=== PATIENT | female | born 1965 | race Caucasian/White ===

== ENCOUNTER 2017-02-03 18:37 | Emergency (ER) | payer SELFPAY ==
[~2017-02-03] VITALS: Ht 172.7 cm; Wt 95.0 kg
[~2017-02-03 18:37] MED LIST: AUGM875T PO; DICL75 PO; HYDR-3533 PO; LOSA25TA31 PO; PRAV40TA2 PO; ZOLO100T OR
[2017-02-03 18:39] VITALS: BP 157/98; PULSE 74; RESP 20; TEMP 98.6; O2SAT 95
[2017-02-03] MEDS ORDERED: DICL75TA PO (20:11)
[2017-02-03] MEDS ORDERED: HYDR-3533 PO (20:11)
[2017-02-03] MEDS ORDERED: ACETAMINOPHEN/HYDROcodone 325 MG/5 MG TAB PO ONE (20:15)
--- NOTE | 2017-02-03 20:26 | PD ---
HPI Chief Complaint: Injury Time Seen by Provider: 19:57 Travel History International Travel<30 days: No Contact w/Intl Traveler<30days: No Traveled to known affect area: No History of Present Illness HPI 51-year-old white female presents to emergency department accompanied by her significant other for evaluation of left leg bruising and swelling. She states that on Friday she felt that she had a cramp and some tightness in her left thigh. She states that she performed stretching exercises and hopes to alleviate the cramping. She also states that she's been taking 2 aspirin twice a day along with Tylenol because of chronic back pain. She woke up Friday morning with a area swelling and bruising to the medial posterior aspect of her proximal left thigh. Over the last day it has gone down her back of her leg and down the inner aspect of her thigh. She states the pain is severe. Worse with sitting for long periods of time or standing. She denies any numbness or tingling. She denies any direct trauma other than stretching. She denies any other lung thinners. She denies any bleeding tendencies. No recent illness. FOR[facility], [facility] Past Medical History Narrative Medical Chronic back pain, Depression, CVA, hypercholesterolemia Autoimmune Disease: No Depression: Yes (zoloft) Heart Rhythm Problems: No Cancer: No High Cholesterol: Yes Chemotherapy: No Congestive Heart Failure: No Cerebrovascular Accident: Yes (TIA) Diminished Hearing: No Endocrine: No Genitourinary: No Hypertension: Yes Immune Disorder: No Musculoskeletal: Yes Neurologic: Yes Psychiatric: Yes Reproductive: No Respiratory: No Radiation Therapy: No Tetanus Vaccination: Unknown ?: Not LMP: 01/04/2017 Tubal Ligation: Yes Past Surgical History Abdominal Surgery: No Cardiac Surgery: No Genitourinary Surgery: No Gynecologic Surgery: No Thoracic Surgery: No Other Surgery: Yes (SKIN GRAFT) Social History Alcohol Use: Yes (SOCIAL) Tobacco Use: No Substance Use: No Allergies-Medications (Allergen,Severity, Reaction): Coded Allergies: No Known Allergies (Verified , 02/03/17) Reported Meds & Prescriptions Reported Meds & Active Scripts Active Lortab (Hydrocodone-Acetaminophen) 5-325 Mg Tab 1 Tab PO Q8HR PRN Diclofenac Sodium DR (Diclofenac Sodium) 75 Mg Tabdr 75 Mg PO BID Review of Systems General / Constitutional: No: Fever Eyes: No: Visual changes HENT: No: Headaches Cardiovascular: No: Chest Pain or Discomfort Respiratory: No: Shortness of Breath Gastrointestinal: No: Abdominal Pain Genitourinary: No: Dysuria Musculoskeletal: Positive: Myalgias, Cramping, Edema, Pain, No: Arthralgias, Limited ROM Skin: Positive Rash Neurologic: No: Weakness Psychiatric: No: Depression Endocrine: No: Polydipsia Hematologic/Lymphatic: No: Easy Bruising Physical Exam Narrative GENERAL: This is a well-nourished, well-developed patient, in no apparent distress. SKIN: No rashes, ecchymoses or lesions. Warm and dry. HEAD: Atraumatic. Normocephalic. EYES: PERRL, EOMI, no discharge or injection. No scleral icterus. EARS: Clear NOSE: Nasal turbinates appear normal. THROAT: Mucosa pink and moist. Airway patent. NECK: Trachea midline. supple, moves head freely. LUNGS: Clear to auscultation. CV: Regular in rhythm. ABDOMEN: Soft nontender. EXT: No clubbing cyanosis. Examination left lower extremity reveals an area of ecchymosis that starts at the edge of the buttocks along the posterior left thigh and medial thigh to the knee. Patient has intact sensation with good distal pulses. Good capillary refill. The area is tender to touch. There is no bony tenderness in the hip, knee, ankle or foot. Data Data Last Documented VS Vital Signs Date Time Temp Pulse Resp B/P (MAP) Pulse Ox O2 Delivery O2 Flow Rate FiO2 02/03/17 18:39 98.6 74 20 157/98 (117) 95 Orders Orders Acetamin-Hydrocod 325-5 Mg ([place] 5-325 (02/03/17 20:15) [facility] Medical Decision Making Medical Screen Exam Complete: Yes Emergency Medical Condition: Yes Medical Record Reviewed: Yes Differential Diagnosis Differential diagnoses: Sprain, strain, hematoma Narrative Course The patient has a hematoma which is draining down the left leg most likely from a muscle tear. I see no acute compartment syndrome. The patient is complaining of localized pain to palpation. She'll be given Lortab 5 a grams by mouth here and a prescription for diclofenac and Lortab. She is advised to follow-up with a medical doctor in the next 5 days. Diagnosis Primary Impression: Hematoma of left lower extremity Qualified Codes: S80.12XA - Contusion of left lower leg, initial encounter Patient Instructions: General Instructions, Narcotic given in the ED Departure Forms: Tests/Procedures, Work Release Special Instructions: No work 5 days. Additional Instructions: Rest. Elevation. Heating pad. Medications as directed. Stop Aspirin for the next 2 weeks. Follow-up with a medical doctor in the next 5 days. Return to the ER for emergencies. Med/Other Pt SpecificInfo: Prescription(s) given Scripts Hydrocodone-Acetaminophen (Lortab) 5-325 Mg Tab 1 TAB PO Q8HR Y for PAIN GREATER THAN 5, #15 TAB 0 Refills Prov: Odilia Veloz DO 02/03/[address] (Diclofenac Sodium DR) 75 Mg Tabdr 75 MG PO BID, #30 TAB 0 Refills Prov: Odilia Veloz DO 02/03/17 Disposition: 01 DISCHARGE HOME Condition: Stable Alfredo Dent Feb 03, 2017 20:26
== END 2017-02-03 20:50 | disposition home or self-care (01) ==
LOC: NEPK 18:37
DX: S80.12XA Contusion of left lower leg, initial encounter (principal); G89.29 Other chronic pain; M54.9 Dorsalgia, unspecified; I10 Essential (primary) hypertension; X50.1XXA Overexertion from prolonged static or awkward postures, initial encounter; Y93.89 Activity, other specified
CPT/HCPCS: 99284

== ENCOUNTER 2017-06-16 17:15 | Emergency (ER) | payer SELFPAY ==
[~2017-06-16 17:15] MED LIST changes: -AUGM875T PO; -DICL75 PO; +DICL75TA PO; -LOSA25TA31 PO; -PRAV40TA2 PO; -ZOLO100T OR
[2017-06-17] MEDS ORDERED: IRBE75TA24 PO (13:18)
== END 2017-06-16 17:50 | disposition left against medical advice (07) ==
LOC: NED 17:15
DX: Z53.21 Procedure and treatment not carried out due to patient leaving prior to being seen by health care provider (principal)
CPT/HCPCS: 99281

== ENCOUNTER 2017-06-17 08:51 | Emergency (ER) | payer SELFPAY ==
[~2017-06-17] VITALS: Ht 172.7 cm; Wt 96.0 kg
[2017-06-17 08:54] VITALS: BP 216/117; PULSE 72; RESP 17; TEMP 97.9; O2SAT 98
--- NOTE | 2017-06-17 10:29 | PD ---
HPI Chief Complaint: Numbness/Tingling Time Seen by Provider: 10:13 Travel History International Travel<30 days: No Contact w/Intl Traveler<30days: No Traveled to known affect area: No History of Present Illness HPI 51-year-old female states she's having tingling to both of her hands. She states she's been having this for the past 4 days. She states that she had a stroke a couple years ago and at that time she had speech changes. She states all those symptoms resolved. She states now she takes a full dose aspirin in the morning and the evening for that. She states that she's been off of her blood pressure and cholesterol medications for multiple years. She denies any chest pain, weakness, any other concurrent complaints at this time other than sometimes she gets pain to her hands with the numbness. She denies specific modifying factors at this time. Quality is tingly. Location is bilateral hands. PFSH Past Medical History Autoimmune Disease: No Depression: Yes (zoloft) Heart Rhythm Problems: No Cancer: No High Cholesterol: Yes Chemotherapy: No Congestive Heart Failure: No Cerebrovascular Accident: Yes (TIA) Diminished Hearing: No Endocrine: No Genitourinary: No Hypertension: Yes Immune Disorder: No Musculoskeletal: Yes Neurologic: Yes Psychiatric: Yes Reproductive: No Respiratory: No Radiation Therapy: No ?: Not LMP: 06/2017 Tubal Ligation: Yes Past Surgical History Abdominal Surgery: No Cardiac Surgery: No Genitourinary Surgery: No Gynecologic Surgery: No Thoracic Surgery: No Other Surgery: Yes (SKIN GRAFT) Social History Alcohol Use: Yes (SOCIAL) Tobacco Use: No Substance Use: No Allergies-Medications (Allergen,Severity, Reaction): Coded Allergies: No Known Allergies (Verified Adverse Reaction, Unknown, 06/17/17) Reported Meds & Prescriptions Reported Meds & Active Scripts Active Lortab (Hydrocodone-Acetaminophen) 5-325 Mg Tab 1 Tab PO Q8HR PRN Diclofenac Sodium DR (Diclofenac Sodium) 75 Mg Tabdr 75 Mg PO BID Review of Systems Except as stated in HPI: all other systems reviewed are Neg Physical Exam Narrative General: 51 y/o patient in no apparent distress Skin: Warm and dry Eyes: Pupils equal ENT: Mucous membranes moist NECK: no pain with palpation in midline, no step-off Cardiovascular: Regular rate and rhythm Respiratory: Normal respiratory effort noted, clear to auscultation bilaterally Abdomen: soft, nontender, nondistended Back: No step-offs, midline spine nontender with palpation Extremities: No specific joint pain, no lacerations over, neurovascularly intact , no significant edema Neuro: awake, alert, sensation and motor grossly intact, no facial droop, no pronator drift Data Data Last Documented VS Vital Signs Date Time Temp Pulse Resp B/P (MAP) Pulse Ox O2 Delivery O2 Flow Rate FiO2 06/17/17 12:19 60 15 199/100 (133) 98 Room Air 06/17/17 08:54 97.9 Orders Orders Magnesium (Mg) (06/17/17 10:20) Phosphorus (Po4) (06/17/17 10:20) Complete Blood Count With Diff (06/17/17 10:20) Comprehensive Metabolic Panel (06/17/17 10:20) Ckmb (Isoenzyme) Profile (06/17/17 10:20) Troponin I (06/17/17 10:20) Urinalysis - C+S If Indicated (06/17/17 10:20) Act Partial Throm Time (Ptt) (06/17/17 10:20) Prothrombin Time / Inr (Pt) (06/17/17 10:20) Ct Brain W/O Iv Contrast(Rout) (06/17/17 ) Chest, Single Ap (06/17/17 ) Electrocardiogram (06/17/17 ) Iv Access Insert/Monitor (06/17/17 10:20) Ecg Monitoring (06/17/17 10:20) Oximetry (06/17/17 10:20) Enalaprilat Inj (Vasotec Inj) (06/17/17 10:30) CKMB (06/17/17 11:15) CKMB% (06/17/17 11:15) Ed Discharge Order (06/17/17 13:16) Labs Laboratory Tests Test 06/17/17 11:15 White Blood Count 7.8 TH/MM3 Red Blood Count 4.29 MIL/MM3 Hemoglobin 11.8 GM/DL Hematocrit 35.8 % Mean Corpuscular Volume 83.5 FL Mean Corpuscular Hemoglobin 27.5 PG Mean Corpuscular Hemoglobin Concent 33.0 % Red Cell Distribution Width 15.2 % Platelet Count 289 TH/MM3 Mean Platelet Volume 9.2 FL Neutrophils (%) (Auto) 66.6 % Lymphocytes (%) (Auto) 25.9 % Monocytes (%) (Auto) 5.0 % Eosinophils (%) (Auto) 1.3 % Basophils (%) (Auto) 1.2 % Neutrophils # (Auto) 5.2 TH/MM3 Lymphocytes # (Auto) 2.0 TH/MM3 Monocytes # (Auto) 0.4 TH/MM3 Eosinophils # (Auto) 0.1 TH/MM3 Basophils # (Auto) 0.1 TH/MM3 CBC Comment AUTO DIFF Differential Comment AUTO DIFF CONFIRMED Platelet Estimate NORMAL Platelet Morphology Comment NORMAL Red Cell Morphology Comment NORMAL Prothrombin Time 10.0 SEC Prothromb Time International Ratio 1.0 RATIO Activated Partial Thromboplast Time 19.0 SEC Blood Urea Nitrogen 12 MG/DL Creatinine 0.89 MG/DL Random Glucose 115 MG/DL Total Protein 7.6 GM/DL Albumin 3.4 GM/DL Calcium Level 9.1 MG/DL Phosphorus Level 3.2 MG/DL Magnesium Level 1.9 MG/DL Alkaline Phosphatase 76 U/L Aspartate Amino Transf (AST/SGOT) 19 U/L Alanine Aminotransferase (ALT/SGPT) 24 U/L Total Bilirubin 0.3 MG/DL Sodium Level 137 MEQ/L Potassium Level 3.8 MEQ/L Chloride Level 102 MEQ/L Carbon Dioxide Level 28.3 MEQ/L Anion Gap 7 MEQ/L Estimat Glomerular Filtration Rate 67 ML/MIN Total Creatine Kinase 112 U/L Creatine Kinase MB 1.4 NG/ML Troponin I LESS THAN 0.02 NG/ML MDM Medical Decision Making Medical Screen Exam Complete: Yes Emergency Medical Condition: Yes Medical Record Reviewed: Yes (past history confirmed) Interpretation(s) CBC & BMP Diagram 06/17/17 11:15 Total Protein 7.6, Albumin 3.4, Calcium Level 9.1, Phosphorus Level 3.2, Magnesium Level 1.9, Alkaline Phosphatase 76, Aspartate Amino Transf (AST/SGOT) 19, Alanine Aminotransferase (ALT/SGPT) 24, Total Bilirubin 0.3 Last [address] 06/17/17 0000 Signed Impressions: Service Date/Time: Saturday, June 17, 2017 10:55 - CONCLUSION: 1. No acute intracranial abnormality. 2. Bilateral probably old basal ganglia lacunar infarcts. 3. Changes consistent with periventricular and deep white matter small vessel ischemic demyelination. Gus Mcnair MD Chest X-Ray 06/17/17 0000 Signed Impressions: Service Date/Time: Saturday, June 17, 2017 10:33 - CONCLUSION: Normal examination. Antony Elliott Jr., MD Differential Diagnosis Electrolyte abnormality, disc disease, arthritis, hypertensive urgency Narrative Course Will check blood work, chest x-ray, CT brain and dose with Vasotec and reevaluate. Patient's symptomatology sounds more peripheral neuropathy versus cervical disc disease. Patient has no pain over the midline or fever. Patient agrees to limited workup with blood work, chest x-ray, CT brain and reevaluation. ED workup no emergent process. Patient's blood pressure has improved. Patient states she took Avapro in the past without difficulty so I will place her back on this. She currently symptomatically only has bilateral hand numbness. She agrees to follow-up outpatient and understands the importance of taking her blood pressure medication. Patient denies any new complaints and states that they are feeling better. Patient happy with care, all questions answered. Patient knows that follow up is incumbent on them and to return to the emergency room immediately if new or worsening symptoms develop. Patient given strict return precautions, vitals reviewed and are normal Diagnosis Primary Impression: Bilateral hand numbness Additional Impression: Hypertensive urgency Patient Instructions: General Instructions Additional Instructions: return as needed, keep blood pressure log, follow with primary tommorrow Med/Other Pt SpecificInfo: Prescription(s) given Scripts Irbesartan (Avapro) 75 Mg Tab 75 MG PO DAILY for Blood Pressure Management for 14 Days, #14 TAB 0 Refills Prov: Mary Robertson MD 06/17/17 Disposition: 01 DISCHARGE HOME Condition: Stable Mary Robertson MD Jun 17, 2017 10:29
[2017-06-17] MEDS ORDERED: ENALAPRILAT 1.25 MG/ML VIAL IV PUSH ONE (10:30)
--- NOTE | 2017-06-17 10:41 | RADRPT ---
EXAM DATE/TIME: 06/17/2017 10:33 [facility] COMPARISON: No previous studies available for comparison. INDICATIONS : Left arm numbness radiating into fingers. MEDICAL HISTORY : Stroke. SURGICAL HISTORY : None. ENCOUNTER: Initial ACUITY: 2 days PAIN SCORE: 0/10 LOCATION: Left chest FINDINGS: A single view of the chest demonstrates the lungs to be symmetrically aerated without evidence of mas s, infiltrate or effusion. The cardiomediastinal contours are unremarkable. Osseous structures are intact. CONCLUSION: Normal examination. Antony Elliott Jr., MD on June 17, 2017 at 10:40 Board Certified Radiologist. This report was verified electronically.
--- NOTE | 2017-06-17 11:09 | RADRPT ---
EXAM DATE/TIME: 06/17/2017 10:55 [facility] COMPARISON: CT BRAIN W/O CONTRAST, January 07, 2012, 11:35. INDICATIONS : Left hand tingling and numbness x 4 days. RADIATION DOSE: 56.77 CTDIvol (mGy) MEDICAL HISTORY : Cerebrovascular disease. Hypertension. SURGICAL HISTORY : Tubal ligation. ENCOUNTER: Initial ACUITY: 4 - 6 days PAIN SCALE: 0/10 LOCATION: cranial TECHNIQUE: Multiple contiguous axial images were obtained of the head. Using automated exposure control and adj ustment of the mA and/or kV according to patient size, radiation dose was kept as low as reasonably a chievable to obtain optimal diagnostic quality images. DICOM format image data is available electro nically for review and comparison. FINDINGS: CEREBRUM: Mild diffuse cerebral volume loss. Small hypodensities in the basal ganglia bilaterally which may ref lect small lacunar infarcts. Mild periventricular and deep white matter hypodensities. The ventricles are normal for age. No evidence of midline shift, mass lesion, hemorrhage or acute infarction. No extra-axial fluid collections are seen. POSTERIOR FOSSA: The cerebellum and brainstem are intact. The 4th ventricle is midline. The cerebellopontine angle i s unremarkable. EXTRACRANIAL: The visualized portion of the orbits is intact. SKULL: The calvaria is intact. No evidence of skull fracture. CONCLUSION: 1. No acute intracranial abnormality. 2. Bilateral probably old basal ganglia lacunar infarcts. 3. Changes consistent with periventricular and deep white matter small vessel ischemic demyelination. Gus Mcnair MD on June 17, 2017 at 11:05 Board Certified Radiologist. This report was verified electronically.
[2017-06-17 11:51] LABS: AUTOMATED NEUTROPHIL # 5.2 TH/MM3 (1.8-7.7); BASOPHIL # 0.1 TH/MM3 (0-0.2); BASOPHIL % 1.2 % (0.0-2.0); EOSINOPHIL # 0.1 TH/MM3 (0-0.4); EOSINOPHIL % 1.3 % (0.0-4.0); HEMATOCRIT 35.8 % (35.0-46.0); HEMOGLOBIN 11.8 GM/DL (11.6-15.3); LYMPH % 25.9 % (9.0-44.0); MEAN CELL VOLUME 83.5 FL (80.0-100.0); MEAN CORPUSCULAR HEMOGLOBIN 27.5 PG (27.0-34.0); MEAN PLATELET VOLUME 9.2 FL (7.0-11.0); MONOCYTE # 0.4 TH/MM3 (0-0.9); NEUT % 66.6 % (16.0-70.0); PLATELET COUNT 289 TH/MM3 (150-450); RED BLOOD COUNT 4.29 MIL/MM3 (4.00-5.30); RED CELL DISTRIBUTION WIDTH 15.2 % (11.6-17.2); WHITE BLOOD COUNT 7.8 TH/MM3 (4.0-11.0)
[2017-06-17 12:00] VITALS: BP 199/100; PULSE 60; RESP 15; O2SAT 98
[2017-06-17 12:17] LABS: ALBUMIN 3.4 GM/DL (3.4-5.0); ALT (GPT) 24 U/L (10-53); AST (GOT) 19 U/L (15-37); BICARBONATE 28.3 MEQ/L (21.0-32.0); BLOOD UREA NITROGEN 12 MG/DL (7-18); CALCIUM 9.1 MG/DL (8.5-10.1); CHLORIDE 102 MEQ/L (98-107); CREATININE 0.89 MG/DL (0.50-1.00); GLOMERULAR FILTRATION RATE 67 ML/MIN (>89); GLUCOSE,RANDOM 115 MG/DL (74-106); MAGNESIUM 1.9 MG/DL (1.5-2.5); PHOSPHORUS 3.2 MG/DL (2.5-4.9); SODIUM (NA) 137 MEQ/L (136-145)
[2017-06-17 12:19] VITALS: BP 199/100; PULSE 60; RESP 15; O2SAT 98
[2017-06-17 12:21] LABS: ALKALINE PHOSPHATASE 76 U/L (45-117); TOTAL BILIRUBIN ADULT 0.3 MG/DL (0.2-1.0); TOTAL PROTEIN 7.6 GM/DL (6.4-8.2); TROPONIN I LESS THAN 0.02 NG/ML (0.02-0.05)
[2017-06-17] MEDS ORDERED: IRBE75TA24 PO (13:18)
[2017-06-17 13:27] VITALS: BP 173/58
--- NOTE | 2017-06-18 14:55 | EKG ---
Date Performed: 06/17/2017 Time Performed: 12:21:09 PTAGE: 51 years EKG: Sinus rhythm NORMAL ECG PREVIOUS TRACING : 01/07/2012 11.14 DOCTOR: Patel Guerrero Interpretating Date/Time 06/18/2017 14:53:20
== END 2017-06-17 13:40 | disposition home or self-care (01) ==
LOC: NEPE 08:51
DX: R20.2 Paresthesia of skin (principal); I16.0 Hypertensive urgency; I10 Essential (primary) hypertension; Z79.899 Other long term (current) drug therapy
CPT/HCPCS: 70450; 71045; 80053; 82550; 82552; 83735; 84100; 84484; 85025; 85610; 85730; 93005; 96374

== ENCOUNTER 2017-12-08 23:18 | Observation (INO) ==
[2017-12-09 01:42] LABS: Baso # (Auto) 0.1 th/mm3 (0.0-0.2); Baso % (Auto) 0.6 % (0.0-2.0); Eos # (Auto) 0.1 th/mm3 (0.0-0.4); Hematocrit 33.8 % (35.0-46.0); Hemoglobin 11.6 gm/dL (11.6-15.3); Lymph % (Auto) 21.4 % (9.0-44.0); Mean Corpuscular HGB Conc 34.4 % (32.0-36.0); Mean Corpuscular Hemoglobin 28.8 pg (27.0-34.0); Mean Corpuscular Volume 83.7 fL (80.0-100.0); Mean Platelet Volume 9.2 fL (7.0-11.0); Mono # (Auto) 0.4 th/mm3 (0.0-0.9); Mono % (Auto) 4.7 % (0.0-8.0); Neut # (Auto) 6.7 th/mm3 (1.8-7.7); Neut % (Auto) 72.3 % (16.0-70.0); Platelet Count 245 th/mm3 (150-450); Red Blood Count 4.03 mil/mm3 (4.00-5.30); Red Cell Distribution Width 16.4 % (11.6-17.2); White Blood Count 9.2 th/mm3 (4.0-11.0)
[2017-12-09 01:55] LABS: Alanine Aminotransferase 22 U/L (10-53); Albumin 3.5 g/dL (3.4-5.0); Anion Gap 10 meq/L (5-15); Aspartate Aminotransferase 15 U/L (15-37); Blood Urea Nitrogen 16 mg/dL (7-18); Calcium 8.7 mg/dL (8.5-10.1); Carbon Dioxide 29.1 meq/L (21.0-32.0); Chloride 101 meq/L (98-107); Glomerular Filtration Rate 65 mL/min (>89); Glucose,Random 102 mg/dL (74-106); Potassium 3.3 meq/L (3.5-5.1); Sodium 140 meq/L (136-145)
[2017-12-09 01:57] LABS: Alkaline Phosphatase 65 U/L (45-117); Total Protein 7.9 g/dL (6.4-8.2)
[2017-12-09] MEDS ORDERED: Sodium Chlor 0.9% Inj 500 ML IV.SIG ONE (02:05)
--- NOTE | 2017-12-09 02:43 | XR ---
EXAM DATE: 12/09/2017 2:40 AM EDT AGE/SEX: 52 years / Female INDICATIONS: Cough. Dizziness with a fall on 12/08/2017 CLINICAL DATA: This is the patient's initial encounter. Patient reports that signs and symptoms have been present for 1 day and indicates a pain score of 2/10. MEDICAL/SURGICAL HISTORY: None. None. COMPARISON: [facility] [place], CHEST SINGLE AP, 06/17/2017. . FINDINGS: A single AP view of the chest demonstrates the lungs to be symmetrically aerated without evidence of mass, infiltrate or effusion. The cardiomediastinal contours are unremarkable. Osseous structures a re intact. CONCLUSION: No evidence of acute cardiopulmonary disease. Electronically signed by: Jorge Ortiz MD 12/09/2017 2:41 AM EDT
--- NOTE | 2017-12-09 02:46 | CT ---
EXAM DATE: 12/09/2017 2:41 AM EDT AGE/SEX: 52 years / Female INDICATIONS: Tingling in right arm. CLINICAL DATA: This is the patient's initial encounter. Patient reports that signs and symptoms have been present for 1 day and indicates a pain score of 0/10. MEDICAL/SURGICAL HISTORY: Stroke. None. RADIATION DOSE: 56.35 CTDI (mGy) COMPARISON: [facility] [place], 06/17/2017. . TECHNIQUE: CT of the head without contrast. Using automated exposure control and adjustment of the mA and/or kV according to patient size, radiation dose was kept as low as reasonably achievable to ob tain optimal diagnostic quality images. DICOM format image data is available electronically for revi ew and comparison. FINDINGS: Cerebrum: The ventricles are normal for age. No evidence of midline shift, mass lesion, hemorrhage or acute infarction. No extraaxial fluid collections are seen. Scattered lacunar infarcts are again seen of the bilateral periventricular white matter and basal ganglia. No evidence of an acute ischemi c event Posterior Fossa: The cerebellum and brainstem are intact. The 4th ventricle is midline. The cerebe llopontine angle is unremarkable. Extracranial: Mild mucoperiosteal thickening seen of the visualized ethmoid and left maxillary air c ells. Skull: The calvaria is intact. No evidence of skull fracture. CONCLUSION: 1. No acute intracranial abnormality demonstrated. 2. Chronic bilateral white matter and basal ganglia ischemic changes. 3. Mild paranasal sinus disease. . Electronically signed by: Jorge Ortiz MD 12/09/2017 2:44 AM EDT
--- NOTE | 2017-12-09 02:47 | XR ---
EXAM DATE: 12/09/2017 2:42 AM EDT AGE/SEX: 52 years / Female INDICATIONS: Fall yesterday 12/08/2017. Pain. CLINICAL DATA: This is the patient's initial encounter. Patient reports that signs and symptoms have been present for 1 day and indicates a pain score of 5/10. MEDICAL/SURGICAL HISTORY: None. None. COMPARISON: [facility], WRIST LEFT COMPLETE ([id number]), 11/19/2010. . FINDINGS: Bony structures are intact and in normal alignment. Joints are intact without dislocation or signifi cant arthropathy. Osseous density is normal. Soft tissues are unremarkable. No radiopaque foreign bodies seen. CONCLUSION: Intact left wrist. Electronically signed by: Jorge Ortiz MD 12/09/2017 2:45 AM EDT
[2017-12-09 03:03] LABS: Creatine Kinase 65 U/L (26-192)
--- NOTE | 2017-12-09 03:03 | ED ---
HPI General Chief complaint: Dizziness Stated complaint: dizziness Time Seen by Provider: 12/09/17 01:27 Source: patient Limitations: no limitations History of Present Illness HPI narrative: The patient is a 52 year old female who presents to the [facility] emergency department with a history of multiple complaints that have been ongoing for the last 2 weeks. The patient reports that 2 weeks ago she began to have increased fatigue, numbness in her left wrist, and tingling in the left wrist. The patient reports that she has had a tingling in the past. She reports that currently she does not have a primary care physician as she has had a change in her insurance. She reports that over the last 2 weeks she has been out of her blood pressure medicine Irbesartan and pravastatin for her cholesterol. The patient reports that she does take 2 low-dose aspirin daily. She reports that she has been on low-dose aspirin daily since she had a stroke involving her right side in 2011. The patient reports that 2 days ago she began to have a sensation of getting lightheaded. She reports that today she almost fell while walking her dog and now has an area of swelling to the left wrist. The patient reports that she did not take her aspirin today. The patient denies having any vertigo. She denies having any one-sided weakness, slurred speech, facial droop, or difficulty with word finding ability. She denies having any vision changes. On review of systems otherwise, the patient denies having any known recent fevers, cough, congestion, neck pain, chest pain , shortness of breath, abdominal pain, vomiting, diarrhea, urinary symptoms, or other neurologic symptoms. The patient incidentally reports that 2 nights ago she did have an episode of indigestion and heartburn. Related Data Home Medications Medication Instructions Recorded Confirmed irbesartan 75 DAILY 12/09/17 Allergies Allergy/AdvReac Type Severity Reaction Status Date / Time No Known Allergies Allergy Unverified 12/08/17 23:40 Review of Systems ROS: all other systems reviewed are negative (Except for that which was mentioned in the HPI.) [facility] Medical History Medical History Hyperlipidemia (Acute) Hypertension (Acute) Stroke (Acute) Surgical History Surgical History H/O skin graft (Acute) Social History Social History Second Hand Smoke Exposure: No Smoking Status: Former smoker Tobacco Type: Cigarettes How Often Do You Have a Drink Containing Alcohol: Monthly or less Recent Out of Country Travel within the Last 8 Weeks: No Immunization History Tetanus Immunization: Unsure Hx Influenza Vaccine This Season: No Exam Const General: cooperative, no acute distress and well developed Nutritional Appearance: well nourished Orientation: alert, awake and oriented x3 HENMT Head: normocephalic and atraumatic Nose: no nasal discharge and no epistaxis Mouth: moist mucous membranes Throat: posterior oropharynx normal and uvula midline Eyes Sclera: normal sclerae Pupils: PERRL Neck Neck: no meningeal signs, trachea midline and no JVD Resp Effort & Inspection: no use of accessory muscles Auscultation: clear to auscultation bilaterally Cardio Rate: regular rate Rhythm: regular rhythm Heart Sounds: no murmurs GI Inspection: non-distended Palpation: soft, no hepatosplenomegaly and nontender Auscultation: normal bowel sounds Back/Spine/Pelvis Back: no CVA tenderness Skin General: dry skin (warm) Neuro General: alert, awake and oriented x3 Cranial Nerves: CN's II-XI intact bilaterally and other Speech: speech normal Motor: strength 5/5 throughout and no movement abnormalities noted Sensory Exam: no sensory deficits noted Extrem General: normal to inspection (Except for in the area of interest, right upper extremity, left lower extremity which will be dictated below. No calf tenderness on palpation. Negative Homans sign. 2+ pulses in all 4 extremities. ), no clubbing, no cyanosis and no edema Right upper extremity: full ROM and shoulder/upper arm (The patient on examination of the upper arm over the biceps is noted to have a prominence. She reports that this is been present since 2011. She reports some tenderness on palpation. There is no overlying erythema, edema, or fluctuance. The patient has full range of motion of her biceps.) Left upper extremity: wrist Details: abnormal to inspection (The patient on examination is noted to have some soft radial side of the wrist. The patient reports some tenderness on palpation. There is a small bruise at the site. Patient continues to have full range of motion. Intact sensation over all fingertips. Full range of motion of her hand and elbow) Psych Mood: congruent mood Affect: normal affect Judgment: judgment good Course Reevaluation(s) Reevaluation #1: The patient on reevaluation is reportedly feeling improved. Consultations Consultation #1: The patient's case including history, pertinent physical examination findings, and laboratory studies were discussed with Dr. Quinteros. It was agreed that the patient would be admitted to the hospitalist service. Initial Documented Vital Signs Temperature 97.9 F 12/08/17 23:34 Pulse Rate 65 12/08/17 23:34 Respiratory Rate 22 12/08/17 23:34 Blood Pressure 157/95 H 12/08/17 23:34 Pulse Oximetry 97 12/08/17 23:34 Last Documented Vital Signs Temperature 97.9 F 12/08/17 23:34 Pulse Rate 65 12/08/17 23:34 Respiratory Rate 22 12/08/17 23:34 Blood Pressure 157/95 H 12/08/17 23:34 Pulse Oximetry 97 12/08/17 23:34 Medical Decision Making MDM Narrative Medical decision making narrative: During the course of the patient's emergency department visit, the patient's history, examination, and differential diagnosis were reviewed with the patient. The patient was placed on a cotton broker with oximetry and frequent blood pressure monitoring. The patient had IV access obtained and blood work sent for analysis. Diagnostic evaluation was started regarding the patient's left wrist pain that is acute, fatigue, dizziness, lightheaded sensation. The patient had orthostatic vital signs done. Orthostatic vital signs were negative. The patient was initially provided normal saline 500 mL bolus 1. The patient's diagnostic studies are remarkable for a white count of 9.2, neutrophil percent is 72.3, platelets are 245, hemoglobin 11.6, PT 10, PTT 19, chemistry is remarkable for troponin I of less than 0.02, potassium 3.3, GFR 65. CT scan of the brain shows no acute intracranial abnormality, chronic bilateral white matter and basal ganglia ischemic changes, mild paranasal sinus disease, chest x-ray shows no acute evidence of cardiopulmonary disease, left wrist x-ray shows no acute abnormality. The patient was given aspirin 324 mg p.o. 1. Review of the electronic medical record reveals that the right arm swelling has been evaluated in the past in 2012. The patient was noted on MRI to have a tear of the biceps tendon. This was explained to the patient during this emergency department visit. Regarding the patient's intermittent tingling sensations to the left arm. We did discuss that the symptoms could be related to a TIA. The patient denies having a primary care physician at this time. She has been off of her blood pressure medications and did not take her aspirin today. She did get an aspirin in the emergency department. The patient is agreeable with the plan to proceed with admission for continued evaluation and treatment. The patient was admitted to the hospital in stable condition and sent to a bed under the care of the [facility] service. The patient's results were discussed with the patient, including the plan of care. I explained that further testing and/ or monitoring is indicated based on the patient's history, examination, and/ or laboratory findings. Therefore, I recommended admission for additional evaluation. The patient expressed understanding and was agreeable with this plan. The patient was admitted to the hospital in stable condition and sent to a bed under the care of the [facility] service. Medical Screen Exam Complete: Yes Emergency Medical Condition: Yes Medical Records Medical records reviewed: Yes I reviewed the patient's medical records. Lab Data Lab results reviewed: Yes I reviewed the patient's lab results. Result diagrams: 12/09/17 00:59 12/09/17 00:59 Lab Results 12/09/17 12/09/17 12/09/17 Range/Units 00:59 00:59 02:15 WBC 9.2 (4.0-11.0) th/mm3 RBC 4.03 (4.00-5.30) mil/mm3 Hgb 11.6 (11.6-15.3) gm/dL Hct 33.8 L (35.0-46.0) % MCV 83.7 (80.0-100.0) fL MCH 28.8 (27.0-34.0) pg MCHC 34.4 (32.0-36.0) % RDW 16.4 (11.6-17.2) % Plt Count 245 (150-450) th/mm3 MPV 9.2 (7.0-11.0) fL Neut % (Auto) 72.3 H (16.0-70.0) % Lymph % (Auto) 21.4 (9.0-44.0) % [place] % (Auto) 4.7 (0.0-8.0) % Eos % (Auto) 1.0 (0.0-4.0) % Baso % (Auto) 0.6 (0.0-2.0) % Neut # (Auto) 6.7 (1.8-7.7) th/mm3 Lymph # (Auto) 2.0 (1.0-4.8) th/mm3 [place] # (Auto) 0.4 (0.0-0.9) th/mm3 Eos # (Auto) 0.1 (0.0-0.4) th/mm3 Baso # (Auto) 0.1 (0.0-0.2) th/mm3 WBC Differential . Differential Comment Auto diff final PT 10.0 (9.8-11.6) sec INR 1.0 Ratio Sodium 140 (136-145) meq/L Potassium 3.3 L (3.5-5.1) meq/L Chloride 101 (98-107) meq/L Carbon Dioxide 29.1 (21.0-32.0) meq/L Anion Gap 10 (5-15) meq/L BUN 16 (7-18) mg/dL Creatinine 0.91 (0.50-1.00) mg/dL Estimated GFR 65 L (>89) mL/min Random Glucose 102 (74-106) mg/dL Calcium 8.7 (8.5-10.1) mg/dL Total Bilirubin 0.3 (0.2-1.0) mg/dL AST 15 (15-37) U/L ALT 22 (10-53) U/L Alkaline Phosphatase 65 (45-117) U/L Total Creatine Kinase (26-192) U/L Troponin I (0.02-0.05) ng/mL Total Protein 7.9 (6.4-8.2) g/dL Albumin 3.5 (3.4-5.0) g/dL TSH (0.358-3.740) uIU/mL 12/09/17 12/09/17 Range/Units 02:15 02:15 WBC (4.0-11.0) th/mm3 RBC (4.00-5.30) mil/mm3 Hgb (11.6-15.3) gm/dL Hct (35.0-46.0) % MCV (80.0-100.0) fL MCH (27.0-34.0) pg MCHC (32.0-36.0) % RDW (11.6-17.2) % Plt Count (150-450) th/mm3 MPV (7.0-11.0) fL Neut % (Auto) (16.0-70.0) % Lymph % (Auto) (9.0-44.0) % [place] % (Auto) (0.0-8.0) % Eos % (Auto) (0.0-4.0) % Baso % (Auto) (0.0-2.0) % Neut # (Auto) (1.8-7.7) th/mm3 Lymph # (Auto) (1.0-4.8) th/mm3 [place] # (Auto) (0.0-0.9) th/mm3 Eos # (Auto) (0.0-0.4) th/mm3 Baso # (Auto) (0.0-0.2) th/mm3 WBC Differential Differential Comment PT (9.8-11.6) sec INR Ratio Sodium (136-145) meq/L Potassium (3.5-5.1) meq/L Chloride (98-107) meq/L Carbon Dioxide (21.0-32.0) meq/L Anion Gap (5-15) meq/L BUN (7-18) mg/dL Creatinine (0.50-1.00) mg/dL Estimated GFR (>89) mL/min Random Glucose (74-106) mg/dL Calcium (8.5-10.1) mg/dL Total Bilirubin (0.2-1.0) mg/dL AST (15-37) U/L ALT (10-53) U/L Alkaline Phosphatase (45-117) U/L Total Creatine Kinase 65 (26-192) U/L Troponin I Less than 0.02 L (0.02-0.05) ng/mL Total Protein (6.4-8.2) g/dL Albumin (3.4-5.0) g/dL TSH 4.450 H (0.358-3.740) uIU/mL Imaging Data Radiologist's impression: Chest X-Ray 12/09/17 02:05 CONCLUSION: No evidence of acute cardiopulmonary disease. Head CT 12/09/17 02:05 CONCLUSION: 1. No acute intracranial abnormality demonstrated. 2. Chronic bilateral white matter and basal ganglia ischemic changes. 3. Mild paranasal sinus disease. . Wrist X-Ray 12/09/17 02:30 CONCLUSION: Intact left wrist. ECG Data Attestation: I personally reviewed and interpreted this ECG as follows: Interpretation: The patient had an EKG done. The patient's EKG reveals C4 187 ms representing a prolonged QT interval. Discharge Plan Discharge Disposition Patient Disposition: 30 Still Patient Discharge Details Diagnosis: TIA (transient ischemic attack) Physicians Team ED Provider: Savita New Primary Care Provider: Primary Care Sugey Iverson Attending Provider: Garth Quinteros Status ED Status: Admitted Observation Patient
--- NOTE | 2017-12-09 04:39 | P.HPIM ---
History of Present Illness Primary Care Physician: No Primary Care Physician History of Present Illness: 52-year-old female with a history of hypertension, CVA who recently ran out of her blood pressure meds 2 weeks ago. She presents with a two-week history of light headedness without syncope, progressively worsening left arm numbness/ decreased sensation. She also reports feeling like she is "swelling all over. Denies any chest pain, shortness of breath, nausea, vomiting. Review of Systems All other systems reviewed negative except as stated in HPI PMFSH - History History Provided By: Patient - Medical History Medical History: Medical History (Last Reviewed 12/09/17 @ 03:43 by Savita New MD) Hyperlipidemia Hypertension Stroke - Surgical History Surgical History: Surgical History (Last Reviewed 12/09/17 @ 03:43 by Savita New MD) H/O skin graft - Family History Family History: Family History (Last Updated 12/09/17 @ 04:35 by Garth Quinteros MD) Mother Pancreatic cancer Other Lung cancer - Tobacco History Second Hand Smoke Exposure: No Tobacco Use In Past 30 Days: No Smoking Status: Former smoker Tobacco Type: Cigarettes - Alcohol History How Often Do You Have a Drink Containing Alcohol: Monthly or less - Travel History Recent Travel Out of the Country Within the Last 8 Weeks: No - Immunization History Tetanus Immunization: Unsure Hx Influenza Vaccine This Season: No Medications and Allergies Active Medications: Active Medications Aspirin (Aspirin Chew) 81 mg PO DAILY YO Heparin Sodium (Porcine) (Heparin Inj) 5,000 units SQ Q12H YO Sodium Chloride (Ns Flush) 2 ml IV.FLUSH PRN PRN PRN Reason: FLUSH AFTER USING IV ACCESS Allergies Allergy/AdvReac Type Severity Reaction Status Date / Time No Known Allergies Allergy Unverified 12/08/17 23:40 Home Medications Medication Instructions Recorded Confirmed Type irbesartan 75 DAILY 12/09/17 History Exam Vital signs: Vital Signs 12/08/17 23:34 Temperature 97.9 F Pulse Rate 65 Respiratory Rate 22 Blood Pressure 157/95 H Pulse Oximetry 97 Intake & Output 12/08/17 12/08/17 12/09/17 06:59 18:59 06:59 Weight 91.626 kg Narrative: GENERAL: Patient sitting up in bed. Appears comfortable. SKIN: Warm and dry. HEAD: Atraumatic. Normocephalic. EYES: Pupils equal and round. No scleral icterus. No injection or drainage. ENT: No nasal bleeding or discharge. Mucous membranes pink and moist. NECK: Trachea midline. No JVD. CARDIOVASCULAR: Regular rate and rhythm. RESPIRATORY: No accessory muscle use. Clear to auscultation. Breath sounds equal bilaterally. GASTROINTESTINAL: Abdomen soft, non-tender, nondistended. Hepatic and splenic margins not palpable. MUSCULOSKELETAL: Extremities without clubbing, cyanosis, or edema. No obvious deformities. NEUROLOGICAL: Awake and alert. No obvious cranial nerve deficits. Motor grossly within normal limits. Five out of 5 muscle strength in the arms and legs. No appreciable loss of strength. Normal speech. PSYCHIATRIC: Appropriate mood and affect; insight and judgment normal. Results - Labs CBC & Chem 7: 12/09/17 00:59 12/09/17 00:59 Labs: Short CBC 12/09/17 Range/Units 00:59 WBC 9.2 (4.0-11.0) th/mm3 Hgb 11.6 (11.6-15.3) gm/dL Hct 33.8 L (35.0-46.0) % Plt Count 245 (150-450) th/mm3 BMP 12/09/17 00:59 Sodium 140 Potassium 3.3 L Chloride 101 Carbon Dioxide 29.1 BUN 16 Creatinine 0.91 Calcium 8.7 Cardiac Enzymes 12/09/17 Range/Units 02:15 Total Creatine Kinase 65 (26-192) U/L Troponin I Less than 0.02 L (0.02-0.05) ng/mL Liver Function 12/09/17 Range/Units 00:59 Total Bilirubin 0.3 (0.2-1.0) mg/dL AST 15 (15-37) U/L ALT 22 (10-53) U/L Alkaline Phosphatase 65 (45-117) U/L Albumin 3.5 (3.4-5.0) g/dL - Imaging Impressions Chest X-Ray 12/09/17 02:05 CONCLUSION: No evidence of acute cardiopulmonary disease. Head CT 12/09/17 02:05 CONCLUSION: 1. No acute intracranial abnormality demonstrated. 2. Chronic bilateral white matter and basal ganglia ischemic changes. 3. Mild paranasal sinus disease. . Wrist X-Ray 12/09/17 02:30 CONCLUSION: Intact left wrist. Caprini VTE Risk Assessment Caprini VTE Risk Assessment: No/Low Risk (score <= 1) Caprini Risk Assessment Model: Point Value = 1 Point Value = 2 Point Value = 3 Point Value = 5 Age 41-60 Minor surgery BMI > 25 kg/m2 Swollen legs Varicose veins or History of unexplained or recurrent spontaneous Oral contraceptives or hormone replacement Sepsis (< 1 month) Serious lung disease, including pneumonia (< 1 month) Abnormal pulmonary function Acute myocardial infarction Congestive heart failure (< 1 month) History of inflammatory bowel disease Medical patient at bed rest Age 61-74 Arthroscopic surgery Major open surgery (> 45 min) Laparoscopic surgery (> 45 min) Malignancy Confined to bed (> 72 hours) Immobilizing plaster cast Central venous access Age >= 75 History of VTE Family history of VTE Factor V Leiden Prothrombin [id number] Lupus anticoagulant Anticardiolipin antibodies Elevated serum homocysteine Heparin-induced thrombocytopenia Other congenital or acquired thrombophilia Stroke (< 1 month) Elective arthroplasty Hip, pelvis, or leg fracture Acute spinal cord injury (< 1 month) Prophylaxis Regimen: Total Risk Factor Score Risk Level Prophylaxis Regimen 0-1 Low Early ambulation 2 Moderate Order ONE of the following: *Sequential Compression Device (SCD) *Heparin 5000 units SQ BID 3-4 Higher Order ONE of the following medications: *Heparin 5000 units SQ TID *Enoxaparin/Lovenox 40 mg SQ daily (WT < 150 kg, CrCl > 30 mL/min) *Enoxaparin/Lovenox 30 mg SQ daily (WT < 150 kg, CrCl > 10-29 mL/min) *Enoxaparin/Lovenox 30 mg SQ BID (WT < 150 kg, CrCl > 30 mL/min) AND/OR *Sequential Compression Device (SCD) 5 or more Highest Order ONE of the following medications: *Heparin 5000 units SQ TID (Preferred with Epidurals) *Enoxaparin/Lovenox 40 mg SQ daily (WT < 150 kg, CrCl > 30 mL/min) *Enoxaparin/Lovenox 30 mg SQ daily (WT < 150 kg, CrCl > 10-29 mL/min) *Enoxaparin/Lovenox 30 mg SQ BID (WT < 150 kg, CrCl > 30 mL/min) AND *Sequential Compression Device (SCD) Assessment and Plan - Plan //Left arm numbness //Possible stroke versus TIA versus carpal tunnel syndrome = No appreciable weakness on left side CT brain on admission with running changes, no acute findings = We will check carotid ultrasound, echocardiogram, MRI. Consult neurology. Appreciate assistance. //Hypertension. Chronic. Permissive blood pressure at this time. Discussed Condition With: Patient, nurse, ED physician.
[2017-12-09] MEDS: Heparin - SQ 10,000 UNITS/ML Vial SQ SCH ×2 (05:29→16:06)
[2017-12-09] MEDS ORDERED: Gadobutrol PF 10 MMOL/10 ML Vial (for RAD) IV.SIG ONE (08:37)
--- NOTE | 2017-12-09 08:49 | P.CONNEU ---
History of Present Illness Service: Neurology Primary Care Provider: No Primary Care Physician Family Provider: No Primary Care Physician History of Present Illness: 52-year-old female admitted for possible stroke symptoms. States she has been having numbness in her left arm off and on over the past week. Currently the symptoms have resolved. Denies any facial numbness or leg numbness or any focal weakness. She had a stroke she states in 2011 takes aspirin daily for it. There is a times a positional component to the numbness in her arm. Denies any neck pain or radicular symptomatology. Denies any bowel bladder incontinence. CT brain scan performed and is rated white matter changes no acute lesion. Does not have elevated blood pressures with systolics 190s, 200s. She does not have her primary care physician does work 2 jobs. Has not really been taking her antihypertensives. Denies any history of A. fib, clot, lupus DVT. Review of Systems All other systems reviewed negative except as stated in HPI PMFSH - History History Provided By: Patient - Medical History Medical History: Medical History (Last Reviewed 12/09/17 @ 08:10 by Mateo Martinez) Hyperlipidemia Hypertension Stroke - Surgical History Surgical History: Surgical History (Last Reviewed 12/09/17 @ 08:10 by Mateo Martinez) H/O skin graft - Family History Family History: Family History (Last Updated 12/09/17 @ 04:35 by Garth Quinteros MD) Mother Pancreatic cancer Other Lung cancer - Tobacco History Second Hand Smoke Exposure: No Tobacco Use In Past 30 Days: No Smoking Status: Former smoker Tobacco Type: Cigarettes - Alcohol History How Often Do You Have a Drink Containing Alcohol: Monthly or less - Travel History Recent Travel Out of the Country Within the Last 8 Weeks: No - Immunization History Tetanus Immunization: Unsure Hx Influenza Vaccine This Season: No Medications and Allergies Active Medications: Active Medications Aspirin (Aspirin Chew) 81 mg PO DAILY [facility] Heparin Sodium (Porcine) (Heparin Inj) 5,000 units SQ Q12H [facility] Last Admin: 12/09/17 05:29 Dose: Not Given Losartan Potassium (Cozaar) 25 mg PO DAILY [facility] Sodium Chloride (Ns Flush) 2 ml IV.FLUSH PRN PRN PRN Reason: FLUSH AFTER USING IV ACCESS Allergies Allergy/AdvReac Type Severity Reaction Status Date / Time No Known Allergies Allergy Unverified 12/08/17 23:40 Home Medications Medication Instructions Recorded Confirmed Type irbesartan 75 mg PO DAILY 12/09/17 12/09/17 History Exam Vital signs: Vital Signs 12/08/17 23:34 12/09/17 04:58 12/09/17 06:19 Temperature 97.9 F Pulse Rate 65 65 66 Respiratory Rate 22 16 16 Blood Pressure 157/95 H 204/93 H 191/93 H Pulse Oximetry 97 97 96 Intake & Output 12/08/17 12/09/17 12/09/17 18:59 06:59 18:59 Intake Total 500 / 500 Balance 500 / 500 Weight 91.626 kg Intake: IV 500 / 500 Narrative: Awake alert oriented 3 no aphasia. Extraocular movements intact slightly reduced left nasolabial fold small symmetric otherwise tongue midline sensation V1 to V3 intact sensation to pinprick intact upper lower limbs no pronator drift no dystaxia noted reflex 1+ symmetric plantar flex response no clonus - Constitutional no acute distress - Routine HEENT Exam Head: Present: normocephalic Eye: Present: EOMI Results - Labs CBC & Chem 7: 12/09/17 00:59 12/09/17 00:59 Labs: Laboratory Results - last 24 hr 12/09/17 12/09/17 12/09/17 00:59 00:59 02:15 WBC 9.2 RBC 4.03 Hgb 11.6 Hct 33.8 L MCV 83.7 MCH 28.8 MCHC 34.4 RDW 16.4 Plt Count 245 MPV 9.2 Neut % (Auto) 72.3 H Lymph % (Auto) 21.4 [place] % (Auto) 4.7 Eos % (Auto) 1.0 Baso % (Auto) 0.6 Neut # (Auto) 6.7 Lymph # (Auto) 2.0 [place] # (Auto) 0.4 Eos # (Auto) 0.1 Baso # (Auto) 0.1 WBC Differential . Differential Comment Auto diff final PT 10.0 INR 1.0 Sodium 140 Potassium 3.3 L Chloride 101 Carbon Dioxide 29.1 Anion Gap 10 BUN 16 Creatinine 0.91 Estimated GFR 65 L Random Glucose 102 Calcium 8.7 Total Bilirubin 0.3 AST 15 ALT 22 Alkaline Phosphatase 65 Total Creatine Kinase Troponin I Total Protein 7.9 Albumin 3.5 TSH 12/09/17 12/09/17 02:15 02:15 WBC RBC Hgb Hct MCV MCH MCHC RDW Plt Count MPV Neut % (Auto) Lymph % (Auto) [place] % (Auto) Eos % (Auto) Baso % (Auto) Neut # (Auto) Lymph # (Auto) [place] # (Auto) Eos # (Auto) Baso # (Auto) WBC Differential Differential Comment PT INR Sodium Potassium Chloride Carbon Dioxide Anion Gap BUN Creatinine Estimated GFR Random Glucose Calcium Total Bilirubin AST ALT Alkaline Phosphatase Total Creatine Kinase 65 Troponin I Less than 0.02 L Total Protein Albumin TSH 4.450 H - Imaging Impressions Chest X-Ray 12/09/17 02:05 CONCLUSION: No evidence of acute cardiopulmonary disease. Head CT 12/09/17 02:05 CONCLUSION: 1. No acute intracranial abnormality demonstrated. 2. Chronic bilateral white matter and basal ganglia ischemic changes. 3. Mild paranasal sinus disease. . Wrist X-Ray 12/09/17 02:30 CONCLUSION: Intact left wrist. Review/Management - Diagnosis (1) Severe hypertension Code(s): I10 - Essential (primary) hypertension Status: Acute Current Visit : Yes (2) Chronic arterial ischemic stroke Code(s): I69.30 - Unspecified sequelae of cerebral infarction Status: Acute Current Visit: Yes - Review/Management Plan: Possible pure sensory TIA versus hypertension induced vasoconstriction versus lesser likely positional entrapment neuropathy Recommendations Add Plavix MRI brain scan reviewed official report pending. I did not see any acute stroke on it. She does have white matter changes and possible old left subcortical lacunar infarct Follow-up cerebrovascular imaging, echo Lipids Due to her young age, suggest seeing cardiology can be done in versus outpatient setting for consideration LATISHA and loop recorder; after above completed heme eval for hypercoag state Blood pressure control Follow exam
--- NOTE | 2017-12-09 09:15 | MR ---
EXAM DATE: 12/09/2017 8:32 AM EDT AGE/SEX: 52 years / Female INDICATIONS: . Left sided arm numbness. CLINICAL DATA: This is the patient's subsequent encounter. Patient reports that signs and symptoms h ave been present for 1 day and indicates a pain score of 0/10. MEDICAL/SURGICAL HISTORY: Hypertension. . skin graft COMPARISON: No prior exams available for comparison. TECHNIQUE: Multiplanar, multisequence examination of the brain was performed without and with 9 ml Ga davist (gadobutrol) contrast as a single exam dose. FINDINGS: MRI of the brain is performed in sagittal, axial and coronal planes. The craniocervical junction and midline structures are unremarkable. Diffusion weighted images demonstrate no abnormality. No acute c ortical infarction, acute hemorrhage, mass effect or midline shift is seen.Following the administrati on of contrast no abnormal enhancement is identified. There is periventricular hyperintensity on the T2 weighted images consistent with small vessel vascular disease slightly more than expected in a pat ient of this age. The lesion adjacent to the body left lateral ventricle has the appearance which can be seen with multiple sclerosis. Posterior fossa structures are unremarkable. CONCLUSION: No evidence of acute intracranial pathology. No masses are identified. White matter abnormalities as above Electronically signed by: Guillermo Swift MD 12/09/2017 9:14 AM EDT
--- NOTE | 2017-12-09 10:06 | P.PNIM ---
Subjective Interval history: 52-year-old female with a history of hypertension, CVA who recently ran out of her blood pressure meds 2 weeks ago. She presents with a two-week history of light headedness without syncope, progressively worsening left arm numbness/ decreased sensation. She also reports feeling like she is "swelling all over. Denies any chest pain, shortness of breath, nausea, vomiting. 8 PATIENT STATES SHE HAS NOT TAKEN HER MEDS IN A FEW WEEKS HAD MRI ECHO AND CAROTIDS ARE PENDING CATAPRES PRN FOR BLOOD PRESSURE DW RN AND PT AND CM Physical Exam Vital signs: Vital Signs 12/08/17 23:34 12/09/17 04:58 12/09/17 06:19 Temperature 97.9 F Pulse Rate 65 65 66 Respiratory Rate 22 16 16 Blood Pressure 157/95 H 204/93 H 191/93 H Pulse Oximetry 97 97 96 12/09/17 08:26 Temperature Pulse Rate 62 Respiratory Rate 18 Blood Pressure 196/98 H Pulse Oximetry Intake & Output 12/08/17 12/09/17 12/09/17 18:59 06:59 18:59 Intake Total 500 / 500 Balance 500 / 500 Weight 91.626 kg Intake: IV 500 / 500 Narrative: GENERAL: Patient sitting up in bed. Appears comfortable. SKIN: Warm and dry. HEAD: Atraumatic. Normocephalic. EYES: Pupils equal and round. No scleral icterus. No injection or drainage. EOMI ENT: No nasal bleeding or discharge. Mucous membranes pink and moist. TONGUE MIDLINE NECK: Trachea midline. No JVD. SUPPLE CARDIOVASCULAR: Regular rate and rhythm. S1-S2 no S3 or S4 RESPIRATORY: No accessory muscle use. Clear to auscultation. Breath sounds equal bilaterally. GASTROINTESTINAL: Abdomen soft, non-tender, nondistended. Hepatic and splenic margins not palpable. MUSCULOSKELETAL: Extremities without clubbing, cyanosis, or edema. No obvious deformities. NEUROLOGICAL: Awake and alert. No obvious cranial nerve deficits. Motor grossly within normal limits. Five out of 5 muscle strength in the arms and legs. No appreciable loss of strength. Normal speech. PSYCHIATRIC: Appropriate mood and affect; insight and judgment normal. Results - Labs CBC & Chem 7: 12/09/17 00:59 12/09/17 00:59 Laboratory Results - last 24 hr 12/09/17 12/09/17 12/09/17 00:59 00:59 02:15 WBC 9.2 RBC 4.03 Hgb 11.6 Hct 33.8 L MCV 83.7 MCH 28.8 MCHC 34.4 RDW 16.4 Plt Count 245 MPV 9.2 Neut % (Auto) 72.3 H Lymph % (Auto) 21.4 [place] % (Auto) 4.7 Eos % (Auto) 1.0 Baso % (Auto) 0.6 Neut # (Auto) 6.7 Lymph # (Auto) 2.0 [place] # (Auto) 0.4 Eos # (Auto) 0.1 Baso # (Auto) 0.1 WBC Differential . Differential Comment Auto diff final PT 10.0 INR 1.0 Sodium 140 Potassium 3.3 L Chloride 101 Carbon Dioxide 29.1 Anion Gap 10 BUN 16 Creatinine 0.91 Estimated GFR 65 L Random Glucose 102 Calcium 8.7 Total Bilirubin 0.3 AST 15 ALT 22 Alkaline Phosphatase 65 Total Creatine Kinase Troponin I Total Protein 7.9 Albumin 3.5 TSH 12/09/17 12/09/17 02:15 02:15 WBC RBC Hgb Hct MCV MCH MCHC RDW Plt Count MPV Neut % (Auto) Lymph % (Auto) [place] % (Auto) Eos % (Auto) Baso % (Auto) Neut # (Auto) Lymph # (Auto) [place] # (Auto) Eos # (Auto) Baso # (Auto) WBC Differential Differential Comment PT INR Sodium Potassium Chloride Carbon Dioxide Anion Gap BUN Creatinine Estimated GFR Random Glucose Calcium Total Bilirubin AST ALT Alkaline Phosphatase Total Creatine Kinase 65 Troponin I Less than 0.02 L Total Protein Albumin TSH 4.450 H - Imaging Impressions Head MRI 12/09/17 00:00 CONCLUSION: No evidence of acute intracranial pathology. No masses are identified. White matter abnormalities as above Chest X-Ray 12/09/17 02:05 CONCLUSION: No evidence of acute cardiopulmonary disease. Head CT 12/09/17 02:05 CONCLUSION: 1. No acute intracranial abnormality demonstrated. 2. Chronic bilateral white matter and basal ganglia ischemic changes. 3. Mild paranasal sinus disease. . Wrist X-Ray 12/09/17 02:30 CONCLUSION: Intact left wrist. Assessment and Plan - Plan Left arm numbness Possible stroke versus TIA versus carpal tunnel syndrome = No appreciable weakness on left side CT brain on admission with running changes, no acute findings = We will check carotid ultrasound, echocardiogram, MRI. Consult neurology. Appreciate assistance. Neurology wants oncology and cardiology consult Echo is still pending as well as carotids are still pending Hypertension. Chronic. Permissive blood pressure at this time. Noncompliance with medications-patient stopped her blood pressure medications because she stopped following with a physician Hypercoagulable workup Labs a.m. labs Continue PT and OT Code Status: Full code Discussed Condition With: RN and patient and case management Discharge Planning: Discharge when cleared by neurology and cardiology and hematology
--- NOTE | 2017-12-09 10:31 | US ---
EXAM DATE: 12/09/2017 10:23 AM EDT AGE/SEX: 52 years / Female INDICATIONS: Lightheadedness. Left arm numbness. CLINICAL DATA: This is the patient's initial encounter. Patient reports that signs and symptoms have been present for 2 weeks and indicates a pain score of 0/10. MEDICAL/SURGICAL HISTORY: Hypertension. Stroke. Hyperlipidemia. . Skin graft. COMPARISON: [facility] [place] CAROTID ARTERIES, 01/07/2012. . VELOCITY PARAMETERS: ICA/CCA Ratio: Right 1.2 , Left 1.2 ICA: Right 74 cm/sec, Left 74 cm/sec CCA: Right 63 cm/sec, Left 64 cm/sec ECA: Right 64 cm/sec, Left 71 cm/sec Vertebral: Right 46 cm/sec antegrade, Left 71 cm/sec antegrade FINDINGS: Right Carotid: Mild arteriosclerotic plaque is visualized.The waveforms are within normal limits. Left Carotid: No significant plaque is visualized. The waveforms are within normal limits. Other: None. CONCLUSION: 1. Right Internal Carotid Artery: No significant stenosis or atherosclerotic plaque is visualized. 2. Left Internal Carotid Artery: No significant stenosis or atherosclerotic plaque is visualized. Electronically signed by: Andre Bales MD 12/09/2017 10:30 AM EDT
[2017-12-09 10:44] LABS: Activated Partial Thrombo Time 24.1 sec (24.3-30.1); Prothrombin Time 10.3 sec (9.8-11.6)
[2017-12-09 10:51] LABS: Free T4 (Free Thyroxine) 0.8 ng/dL (0.76-1.46); Thyroid Stimulating Hormone 4.21 uIU/mL (0.358-3.740)
[2017-12-09 10:57] LABS: D-Dimer 0.24 mg/L FEU (0.00-0.50)
--- NOTE | 2017-12-09 12:18 | P.CONCA ---
History of Present Illness Service: Cardiology Consult date: 12/09/17 Reason for Consult: Transient ischemic attack Primary Care Provider: No Primary Care Physician Family Provider: No Primary Care Physician Chief Complaint: Left hand numbness History of Present Illness: This a 52-year-old female who has past medical history for prior stroke in 2011 at which time she underwent transesophageal echocardiogram which did not reveal underlying cardioembolic source. She also has history of hyperlipidemia, hypertension. She presents now with approximately 2 weeks of left hand numbness /paresthesias. She states that the symptoms do travel a little per forearm. There is no associated facial numbness, leg numbness, or weakness. She currently takes aspirin on a daily basis. She was seen and evaluated by neurology who felt her symptoms although atypical could potentially be transient ischemic attack. CT without contrast of the brain did not reveal any intracranial abnormality. Magnetic resonance imaging of the brain with and without contrast was also unremarkable except for old prior lacunar infarct is some white matter changes likely due to hypertension. We were consulted for consideration of transesophageal echocardiogram and implantable loop recorder to evaluate for potential cardioembolic source related to transient ischemic attack. Review of Systems All other systems reviewed negative except as stated in HPI [facility] - History History Provided By: Patient - Medical History Medical History: Medical History (Last Reviewed 12/09/17 @ 09:37 by Lily Banegas) Hyperlipidemia Hypertension Stroke - Surgical History Surgical History: Surgical History (Last Reviewed 12/09/17 @ 09:37 by Lily Banegas) H/O skin graft - Family History Family History: Family History (Last Reviewed 12/09/17 @ 09:37 by Lily Banegas) Mother Pancreatic cancer Other Lung cancer - Tobacco History Second Hand Smoke Exposure: No Tobacco Use In Past 30 Days: No Smoking Status: Former smoker Tobacco Type: Cigarettes - Alcohol History How Often Do You Have a Drink Containing Alcohol: Monthly or less - Travel History Recent Travel Out of the Country Within the Last 8 Weeks: No - Immunization History Tetanus Immunization: Unsure Hx Influenza Vaccine This Season: No Medications and Allergies Active Medications: Active Medications Aspirin (Aspirin Chew) 81 mg PO DAILY [facility] Last Admin: 12/09/17 10:30 Dose: 81 mg Clonidine HCl (Catapres) 0.1 mg PO Q6H PRN PRN Reason: HYPERTENSION Clopidogrel Bisulfate (Plavix) 75 mg PO DAILY [facility] Last Admin: 12/09/17 10:30 Dose: 75 mg Heparin Sodium (Porcine) (Heparin Inj) 5,000 units SQ Q12H [facility] Last Admin: 12/09/17 05:29 Dose: Not Given Losartan Potassium (Cozaar) 25 mg PO DAILY [facility] Last Admin: 12/09/17 10:30 Dose: 25 mg Sodium Chloride (Ns Flush) 2 ml IV.FLUSH PRN PRN PRN Reason: FLUSH AFTER USING IV ACCESS Last Admin: 12/09/17 10:31 Dose: 2 ml Allergies Allergy/AdvReac Type Severity Reaction Status Date / Time No Known Allergies Allergy Unverified 12/08/17 23:40 Home Medications Medication Instructions Recorded Confirmed Type irbesartan 75 mg PO DAILY 12/09/17 12/09/17 History Exam Vital signs: Vital Signs 12/08/17 23:34 12/09/17 04:58 12/09/17 06:19 Temperature 97.9 F Pulse Rate 65 65 66 Respiratory Rate 22 16 16 Blood Pressure 157/95 H 204/93 H 191/93 H Pulse Oximetry 97 97 96 12/09/17 08:26 12/09/17 10:26 12/09/17 11:00 Temperature Pulse Rate 62 66 54 L Respiratory Rate 18 18 15 Blood Pressure 196/98 H 198/98 H 175/115 H Pulse Oximetry 98 98 Intake & Output 12/08/17 12/09/17 12/09/17 18:59 06:59 18:59 Intake Total 500 / 500 Balance 500 / 500 Weight 91.626 kg Intake: IV 500 / 500 - Constitutional no acute distress - Routine HEENT Exam Head: Present: normocephalic Eye: Present: EOMI, PERRL ENT: Present: mucous membranes moist - Routine Neck Exam Absent: JVD - Routine Respiratory Exam Present: CTA bilaterally - Routine Cardiovascular Exam Present: RRR. Absent: murmur - Routine Abdominal Exam Present: soft, normoactive bowel sounds, tenderness, distended - Routine Extremities Exam Absent: cyanosis, clubbing, edema - Routine Skin Exam Absent: cyanosis, erythema - Routine Neurological Exam Present: alert, oriented X3, CN II-XII intact. Absent: sensory deficit, motor deficit Results 12/09/17 00:59 12/09/17 00:59 Cardiac Enzymes 12/09/17 12/09/17 Range/Units 00:59 02:15 AST 15 (15-37) U/L Troponin I Less than 0.02 L (0.02-0.05) ng/mL Coagulation 12/09/17 12/09/17 Range/Units 02:15 10:02 PT 10.0 10.3 (9.8-11.6) sec APTT 24.1 L (24.3-30.1) sec CBC 12/09/17 Range/Units 00:59 WBC 9.2 (4.0-11.0) th/mm3 RBC 4.03 (4.00-5.30) mil/mm3 Hgb 11.6 (11.6-15.3) gm/dL Hct 33.8 L (35.0-46.0) % Plt Count 245 (150-450) th/mm3 Neut # (Auto) 6.7 (1.8-7.7) th/mm3 Lymph # (Auto) 2.0 (1.0-4.8) th/mm3 [place] # (Auto) 0.4 (0.0-0.9) th/mm3 Eos # (Auto) 0.1 (0.0-0.4) th/mm3 Baso # (Auto) 0.1 (0.0-0.2) th/mm3 Comprehensive Metabolic Panel 12/09/17 Range/Units 00:59 Sodium 140 (136-145) meq/L Potassium 3.3 L (3.5-5.1) meq/L Chloride 101 (98-107) meq/L Carbon Dioxide 29.1 (21.0-32.0) meq/L BUN 16 (7-18) mg/dL Creatinine 0.91 (0.50-1.00) mg/dL Calcium 8.7 (8.5-10.1) mg/dL AST 15 (15-37) U/L ALT 22 (10-53) U/L Alkaline Phosphatase 65 (45-117) U/L Total Protein 7.9 (6.4-8.2) g/dL Albumin 3.5 (3.4-5.0) g/dL Intake and Output 12/08/17 12/09/17 12/09/17 22:59 06:59 14:59 Intake Total 500 / 500 Balance 500 / 500 Intake: IV 500 / 500 Other: Weight 91.626 kg - EKG Interpretation EKG: WNL Assessment and Plan - Assessment (1) Severe hypertension Code(s): I10 - Essential (primary) hypertension Status: Acute Plan: We are consulted by neurology for consideration of transesophageal echocardiogram and implantable loop recorder for the assessment of cardioembolic etiology to transient ischemic attack. After the lengthy discussion with the patient, her symptoms are rather atypical for transient ischemic attack. It is localized primarily to the hand alone without any other involvement on left side of her body. The symptoms come and go and some more positional. It clearly sounds more neuropathic or carpal tunnel like rather than transient ischemic attack. Patient has a prior old lacunar infarct from 2011 which is likely more related to hypertension. She reports transesophageal echocardiogram at that time was unremarkable. I see no reason to proceed with a transesophageal echocardiogram at this time since we really do not have a formal diagnosis by clinical examination or objective imaging of the brain to suggest stroke or transient ischemic attack. Without also being said there is really no reason to look for underlying arrhythmia which would predispose her to increased risk for transient ischemic attack. She is currently on aspirin therapy. She can follow-up with her primary care physician. This point I would just recommend outpatient workup. Call with any further questions.
--- NOTE | 2017-12-09 15:01 | ECHRPT ---
Indication: CVA/TIA CONCLUSIONS The left ventricular systolic function is normal with an estimated ejection fraction in the range of 60-65%. Doppler parameters are consistent with impaired left ventricular relaxtion (grade 1 diastolic dysfun ction). Trace mitral valve regurgitation. BP: / HR: Rhythm: Technical Quality: FINDINGS LEFT VENTRICLE Normal left ventricular size. Wall thickness is normal. The left ventricular systolic function is normal with an estimated ejection fraction in the range of 60-65%. Doppler parameters are consistent with impaired left ventricular relaxtion (grade 1 diastolic dysfun ction). RIGHT VENTRICLE Normal right ventricular size and systolic function. LEFT ATRIUM The left atrial size is mildly dilated. RIGHT ATRIUM The right atrial size is normal. ATRIAL SEPTUM Normal atrial septal thickness without atrial level shunting by limited color doppler interrogation. AORTA The aortic root and proximal ascending aorta are normal in size on limited imaging. MITRAL VALVE Grossly normal, may have mild thickening of the anterior leaflet. Trace mitral valve regurgitation. No mitral valve stenosis. AORTIC VALVE Trileaflet aortic valve. No aortic valve stenosis or regurgitation. TRICUSPID VALVE Structurally normal tricuspid valve. No tricuspid valve stenosis or regurgitation. PULMONARY VALVE The pulmonary valve is not well visualized. VESSELS The inferior vena cava is normal in size. PERICARDIUM No pericardial effusion. Carrington Castellano DO (Electronically Signed) Final Date:09 December 2017 15:00
--- NOTE | 2017-12-09 16:10 | ECG ---
Date Performed: 12/09/2017 Time Performed: 01:11:26 PTAGE: 52 years EKG: Sinus rhythm PROLONGED QT INTERVAL Since the previous tracing, no significant change noted ABNORMAL ECG PREVIOUS TRACING : 06/17/2017 12.21 DOCTOR: Maury Keenan Interpretating Date/Time 12/09/2017 16:09:22
--- NOTE | 2017-12-09 17:14 | MR ---
EXAM DATE: 12/09/2017 5:05 PM EDT AGE/SEX: 52 years / Female INDICATIONS: CVA. Left arm numbness. CLINICAL DATA: This is the patient's subsequent encounter. Patient reports that signs and symptoms h ave been present for 1 day and indicates a pain score of 0/10. MEDICAL/SURGICAL HISTORY: Hypertension. . Skin graft 40 years ago. [place] [facility] [place] [facility] [place]. . TECHNIQUE: 3D [id number] MRA was performed. Source images, multiplanar STS MIP, and 3D volum e MIP reconstructions were reviewed. FINDINGS: There is excellent visualization of the major intracranial arteries out to the second-order branch ve ssels. There is no evidence for aneurysm, vessel truncation or stenosis, and no evidence for vascula r malformation. CONCLUSION: 1. Negative MRA [place] ([place]) non contrast. Electronically signed by: Andre Bales MD 12/09/2017 5:12 PM EDT
[2017-12-10 03:27] VITALS: RESP 16
[2017-12-10] MEDS: Heparin - SQ 10,000 UNITS/ML Vial SQ SCH (06:10)
[2017-12-10 08:54] LABS: Baso % (Auto) 0.6 % (0.0-2.0); Eos # (Auto) 0.1 th/mm3 (0.0-0.4); Eos % (Auto) 1.4 % (0.0-4.0); Hematocrit 36.4 % (35.0-46.0); Hemoglobin 11.6 gm/dL (11.6-15.3); Lymph # (Auto) 1.5 th/mm3 (1.0-4.8); Lymph % (Auto) 24.5 % (9.0-44.0); Mean Corpuscular HGB Conc 31.9 % (32.0-36.0); Mean Corpuscular Hemoglobin 27.4 pg (27.0-34.0); Mean Corpuscular Volume 85.9 fL (80.0-100.0); Mean Platelet Volume 9.2 fL (7.0-11.0); Mono # (Auto) 0.3 th/mm3 (0.0-0.9); Mono % (Auto) 5.6 % (0.0-8.0); Neut # (Auto) 4.1 th/mm3 (1.8-7.7); Neut % (Auto) 67.9 % (16.0-70.0); Platelet Count 266 th/mm3 (150-450); Red Blood Count 4.24 mil/mm3 (4.00-5.30); Red Cell Distribution Width 16.9 % (11.6-17.2); White Blood Count 6.1 th/mm3 (4.0-11.0)
--- NOTE | 2017-12-10 09:19 | MB ---
cc: Gabbie Diaz MD DATE: 12/09/2017 CHIEF COMPLAINT: 1. Hypercoagulable workup. 2. Stroke-like symptoms. HISTORY OF PRESENT ILLNESS: The patient is a 53-year-old lady with a history of CVA 2 years ago, who presented to [facility] Emergency Room with numbness in her left arm that has been happening intermittently for the past several weeks. She takes a daily aspirin for her stroke that she had in 2011. She has no personal or family history of DVT. She has no personal or family history of miscarriage. She has been evaluated by the neurology team with no evidence of acute stroke. PAST MEDICAL HISTORY: Hypertension, hyperlipidemia, stroke. SURGICAL HISTORY: Skin graft. FAMILY HISTORY: Mother with pancreatic cancer. SOCIAL HISTORY: Former smoker. No alcohol. No illegal drug use. HOSPITAL MEDICATIONS: 1. Aspirin. 2. Clonidine. 3. Plavix. 4. Heparin subcutaneous. 5. Losartan. REVIEW OF SYSTEMS: As above in the HPI. All other review of systems negative. PHYSICAL EXAMINATION: GENERAL: Well-developed, well-nourished lady, in no distress. HEENT: Head is normocephalic, atraumatic. Eyes: PERRLA, EOMI. No scleral icterus. NECK: Supple with no palpable lymphadenopathy. CARDIOVASCULAR: Regular rate and rhythm. No murmurs. RESPIRATORY: Clear to auscultation bilaterally. ABDOMEN: Soft, nontender, nondistended. Bowel sounds present. EXTREMITIES: No edema. NEUROLOGIC: Grossly nonfocal. PSYCHIATRIC: Appropriate mood and affect. ASSESSMENT AND PLAN: 1. Stroke-like symptoms. Neurology team following. 2. Hypercoagulable workup. Given young age and past history of stroke, this is reasonable to pursue. We will order protein C activity, protein S activity, antiphospholipid antibody panel, lupus anticoagulant, factor V Leiden gene mutation, and prothrombin gene mutation. She will need followup in hematology clinic upon discharge for further evaluation and review of labs. MD AVA Salomon/daniela , 11:05 PM , 11:12 PM
[2017-12-10 09:22] LABS: Alanine Aminotransferase 23 U/L (10-53); Albumin 3.2 g/dL (3.4-5.0); Anion Gap 10 meq/L (5-15); Aspartate Aminotransferase 20 U/L (15-37); Blood Urea Nitrogen 11 mg/dL (7-18); Calcium 8.7 mg/dL (8.5-10.1); Carbon Dioxide 26.9 meq/L (21.0-32.0); Chloride 103 meq/L (98-107); Cholesterol 250 mg/dL (120-200); Glomerular Filtration Rate Greater Than 89 mL/min (>89); Glucose,Random 102 mg/dL (74-106); Magnesium 1.9 mg/dL (1.5-2.5); Potassium 4.1 meq/L (3.5-5.1); Sodium 140 meq/L (136-145); Total Protein 7.2 g/dL (6.4-8.2)
[2017-12-10 09:27] LABS: Alkaline Phosphatase 63 U/L (45-117); Chol/HDL Ratio 3.73 Ratio; HDL Cholesterol 66.9 mg/dL (40.0-60.0); LDL Cholesterol,Calculated 147 mg/dL (0-99); Phosphorus 3.4 mg/dL (2.5-4.9); Triglycerides 181 mg/dL (42-150)
--- NOTE | 2017-12-10 11:28 | P.PNIM ---
Subjective Interval history: 52-year-old female with a history of hypertension, CVA who recently ran out of her blood pressure meds 2 weeks ago. She presents with a two-week history of light headedness without syncope, progressively worsening left arm numbness/ decreased sensation. She also reports feeling like she is "swelling all over. Denies any chest pain, shortness of breath, nausea, vomiting. 12-09 PATIENT STATES SHE HAS NOT TAKEN HER MEDS IN A FEW WEEKS HAD MRI ECHO AND CAROTIDS ARE PENDING CATAPRES PRN FOR BLOOD PRESSURE DW RN AND PT AND CM 12-10 SEEN BY CARDIO AND ONCOLOGY CAN DC TO HOME TODAY WANTS TO GO HOME NEEDS NOTE FOR WORK Physical Exam Vital signs: Vital Signs 12/09/17 15:03 12/09/17 15:17 12/09/17 16:26 Temperature 98.7 F 98.7 F Pulse Rate 60 56 L 55 L Respiratory Rate 18 18 16 Blood Pressure 193/95 H 187/97 H 134/87 Pulse Oximetry 96 97 12/09/17 20:26 12/09/17 22:17 12/09/17 23:30 Temperature 98.7 F 98.5 F Pulse Rate 59 L 58 L 65 Respiratory Rate 17 17 17 Blood Pressure 112/65 122/76 118/79 Pulse Oximetry 96 98 97 12/10/17 00:00 12/10/17 03:27 12/10/17 07:00 Temperature 98.2 F 97.6 F Pulse Rate 51 L 57 L 68 Respiratory Rate 16 16 Blood Pressure 113/70 127/71 Pulse Oximetry 100 12/10/17 08:06 12/10/17 08:07 12/10/17 09:52 Temperature Pulse Rate 66 71 63 Respiratory Rate 16 16 Blood Pressure 140/74 130/79 Pulse Oximetry 96 96 Narrative: GENERAL: Patient sitting up in bed. Appears comfortable. SKIN: Warm and dry. HEAD: Atraumatic. Normocephalic. EYES: Pupils equal and round. No scleral icterus. No injection or drainage. EOMI ENT: No nasal bleeding or discharge. Mucous membranes pink and moist. TONGUE MIDLINE NECK: Trachea midline. No JVD. SUPPLE CARDIOVASCULAR: Regular rate and rhythm. S1-S2 no S3 or S4 RESPIRATORY: No accessory muscle use. Clear to auscultation. Breath sounds equal bilaterally. GASTROINTESTINAL: Abdomen soft, non-tender, nondistended. Hepatic and splenic margins not palpable. MUSCULOSKELETAL: Extremities without clubbing, cyanosis, or edema. No obvious deformities. NEUROLOGICAL: Awake and alert. No obvious cranial nerve deficits. Motor grossly within normal limits. Five out of 5 muscle strength in the arms and legs. No appreciable loss of strength. Normal speech. PSYCHIATRIC: Appropriate mood and affect; insight and judgment normal. Results - Labs CBC & Chem 7: 12/10/17 08:35 12/10/17 08:35 Laboratory Results - last 24 hr 12/09/17 12/09/17 12/10/17 18:07 20:36 08:35 WBC 6.1 RBC 4.24 Hgb 11.6 Hct 36.4 MCV 85.9 MCH 27.4 MCHC 31.9 L RDW 16.9 Plt Count 266 MPV 9.2 Neut % (Auto) 67.9 Lymph % (Auto) 24.5 [place] % (Auto) 5.6 Eos % (Auto) 1.4 Baso % (Auto) 0.6 Neut # (Auto) 4.1 Lymph # (Auto) 1.5 [place] # (Auto) 0.3 Eos # (Auto) 0.1 Baso # (Auto) 0.0 WBC Differential . Differential Comment Auto diff final Sodium Potassium Chloride Carbon Dioxide Anion Gap BUN Creatinine Estimated GFR POC Glucose 120 H 153 H Random Glucose Calcium Phosphorus Magnesium Total Bilirubin AST ALT Alkaline Phosphatase Total Protein Albumin Triglycerides Cholesterol LDL Cholesterol, Calc HDL Cholesterol Cholesterol/HDL Ratio 12/10/17 12/10/17 08:35 09:09 WBC RBC Hgb Hct MCV MCH MCHC RDW Plt Count MPV Neut % (Auto) Lymph % (Auto) [place] % (Auto) Eos % (Auto) Baso % (Auto) Neut # (Auto) Lymph # (Auto) [place] # (Auto) Eos # (Auto) Baso # (Auto) WBC Differential Differential Comment Sodium 140 Potassium 4.1 D Chloride 103 Carbon Dioxide 26.9 Anion Gap 10 BUN 11 Creatinine 0.67 Estimated GFR Greater than 89 POC Glucose 119 H Random Glucose 102 Calcium 8.7 Phosphorus 3.4 Magnesium 1.9 Total Bilirubin 0.3 AST 20 ALT 23 Alkaline Phosphatase 63 Total Protein 7.2 D Albumin 3.2 L Triglycerides 181 H Cholesterol 250 H LDL Cholesterol, Calc 147 H HDL Cholesterol 66.9 H Cholesterol/HDL Ratio 3.73 - Imaging Impressions Head MRA 12/09/17 08:53 CONCLUSION: 1. Negative MRA [place] ([place] [facility] [place]) non contrast. - Procedures NONE Assessment and Plan - Plan Left arm numbness Possible stroke versus TIA versus carpal tunnel syndrome = No appreciable weakness on left side CT brain on admission with running changes, no acute findings = We will check carotid ultrasound, echocardiogram, MRI. Consult neurology. Appreciate assistance. Neurology wants oncology and cardiology consult Echo is still pending as well as carotids are still pending Hypertension. Chronic. Permissive blood pressure at this time. Noncompliance with medications-patient stopped her blood pressure medications because she stopped following with a physician Hypercoagulable workup CAN BE DISCHARGED TO HOME TODAY NEEDS NOTES FOR WORK NEEDS TO FIND PCP FOR FOLLOW UP Code Status: FULL CODE Discussed Condition With: RN AND PT AND CM Discharge Planning: DC TO HOME TODAY
--- NOTE | 2017-12-10 11:36 | P.DS ---
Date of admission: 12/09/17 04:08 Primary care physician: No Primary Care Physician Attending physician on discharge: Yehuda Dumont Anticipated date of discharge: 12/10/17 Brief History from admission: 52-year-old female with a history of hypertension, CVA who recently ran out of her blood pressure meds 2 weeks ago. She presents with a two-week history of light headedness without syncope, progressively worsening left arm numbness/ decreased sensation. She also reports feeling like she is "swelling all over. Denies any chest pain, shortness of breath, nausea, vomiting. DS: Diagnosis - Discharge Diagnosis (1) Noncompliance Status: Chronic (2) Severe hypertension Status: Chronic (3) TIA (transient ischemic attack) Status: Acute DS: Medications - Discharge Medications Prescriptions: aspirin 81 mg PO DAILY #30 tab clopidogrel [Plavix] 75 mg PO DAILY #30 tab losartan [Cozaar] 25 mg PO DAILY #30 tab simvastatin [Zocor] 20 mg PO QPM #30 tab DS: Summary Hospital Course: 52-year-old female with a history of hypertension, CVA who recently ran out of her blood pressure meds 2 weeks ago. She presents with a two-week history of light headedness without syncope, progressively worsening left arm numbness/ decreased sensation. She also reports feeling like she is "swelling all over. Denies any chest pain, shortness of breath, nausea, vomiting. 8 PATIENT STATES SHE HAS NOT TAKEN HER MEDS IN A FEW WEEKS HAD MRI ECHO AND CAROTIDS ARE PENDING-- BOTH ARE STABLE CATAPRES PRN FOR BLOOD PRESSURE DW RN AND PT AND CM 12-10 SEEN BY CARDIO AND ONCOLOGY CAN DC TO HOME TODAY WANTS TO GO HOME NEEDS NOTE FOR WORK - Time Spent with Patient Total time spent providing and/or coordinating discharge services: Greater than 30 minutes - Quality: VTE Deep Vein Thrombosis/Pulmonary Embolism Present on Admission: No Exam Vital signs: Vital Signs 12/09/17 15:03 12/09/17 15:17 12/09/17 16:26 Temperature 98.7 F 98.7 F Pulse Rate 60 56 L 55 L Respiratory Rate 18 18 16 Blood Pressure 193/95 H 187/97 H 134/87 Pulse Oximetry 96 97 12/09/17 20:26 12/09/17 22:17 12/09/17 23:30 Temperature 98.7 F 98.5 F Pulse Rate 59 L 58 L 65 Respiratory Rate 17 17 17 Blood Pressure 112/65 122/76 118/79 Pulse Oximetry 96 98 97 12/10/17 00:00 12/10/17 03:27 12/10/17 07:00 Temperature 98.2 F 97.6 F Pulse Rate 51 L 57 L 68 Respiratory Rate 16 16 Blood Pressure 113/70 127/71 Pulse Oximetry 100 12/10/17 08:06 12/10/17 08:07 12/10/17 09:52 Temperature Pulse Rate 66 71 63 Respiratory Rate 16 16 Blood Pressure 140/74 130/79 Pulse Oximetry 96 96 Narrative: GENERAL: Patient sitting up in bed. Appears comfortable. SKIN: Warm and dry. HEAD: Atraumatic. Normocephalic. EYES: Pupils equal and round. No scleral icterus. No injection or drainage. EOMI ENT: No nasal bleeding or discharge. Mucous membranes pink and moist. TONGUE MIDLINE NECK: Trachea midline. No JVD. SUPPLE CARDIOVASCULAR: Regular rate and rhythm. S1-S2 no S3 or S4 RESPIRATORY: No accessory muscle use. Clear to auscultation. Breath sounds equal bilaterally. GASTROINTESTINAL: Abdomen soft, non-tender, nondistended. Hepatic and splenic margins not palpable. MUSCULOSKELETAL: Extremities without clubbing, cyanosis, or edema. No obvious deformities. NEUROLOGICAL: Awake and alert. No obvious cranial nerve deficits. Motor grossly within normal limits. Five out of 5 muscle strength in the arms and legs. No appreciable loss of strength. Normal speech. PSYCHIATRIC: Appropriate mood and affect; insight and judgment normal. Results Procedures completed during hospitalization: NONE Completed studies during hospitalization: Laboratory Results WBC 6.1 th/mm3 (4.0-11.0) 12/10/17 08:35 RBC 4.24 mil/mm3 (4.00-5.30) 12/10/17 08:35 Hgb 11.6 gm/dL (11.6-15.3) 12/10/17 08:35 Hct 36.4 % (35.0-46.0) 12/10/17 08:35 MCV 85.9 fL (80.0-100.0) 12/10/17 08:35 MCH 27.4 pg (27.0-34.0) 12/10/17 08:35 MCHC 31.9 % (32.0-36.0) L 12/10/17 08:35 RDW 16.9 % (11.6-17.2) 12/10/17 08:35 Plt Count 266 th/mm3 (150-450) 12/10/17 08:35 MPV 9.2 fL (7.0-11.0) 12/10/17 08:35 Neut % (Auto) 67.9 % (16.0-70.0) 12/10/17 08:35 Lymph % (Auto) 24.5 % (9.0-44.0) 12/10/17 08:35 [place] % (Auto) 5.6 % (0.0-8.0) 12/10/17 08:35 Eos % (Auto) 1.4 % (0.0-4.0) 12/10/17 08:35 Baso % (Auto) 0.6 % (0.0-2.0) 12/10/17 08:35 Neut # (Auto) 4.1 th/mm3 (1.8-7.7) 12/10/17 08:35 Lymph # (Auto) 1.5 th/mm3 (1.0-4.8) 12/10/17 08:35 [place] # (Auto) 0.3 th/mm3 (0.0-0.9) 12/10/17 08:35 Eos # (Auto) 0.1 th/mm3 (0.0-0.4) 12/10/17 08:35 Baso # (Auto) 0.0 th/mm3 (0.0-0.2) 12/10/17 08:35 WBC Differential . 12/10/17 08:35 Differential Comment Auto diff final 12/10/17 08:35 PT 10.3 sec (9.8-11.6) 12/09/17 10:02 INR 1.0 Ratio 12/09/17 10:02 APTT 24.1 sec (24.3-30.1) L 12/09/17 10:02 Fibrinogen 328 mg/dL (227-377) 12/09/17 10:02 D-Dimer Quant (PE/DVT) 0.24 mg/L FEU (0.00-0.50) 12/09/17 10:02 Factor VIII Activity Cancelled 12/09/17 10:02 Sodium 140 meq/L (136-145) 12/10/17 08:35 Potassium 4.1 meq/L (3.5-5.1) D 12/10/17 08:35 Chloride 103 meq/L (98-107) 12/10/17 08:35 Carbon Dioxide 26.9 meq/L (21.0-32.0) 12/10/17 08:35 Anion Gap 10 meq/L (5-15) 12/10/17 08:35 BUN 11 mg/dL (7-18) 12/10/17 08:35 Creatinine 0.67 mg/dL (0.50-1.00) 12/10/17 08:35 Estimated GFR Greater than 89 mL/min (>89) 12/10/17 08:35 POC Glucose 119 mg/dl (68-110) H 12/10/17 09:09 Random Glucose 102 mg/dL (74-106) 12/10/17 08:35 Calcium 8.7 mg/dL (8.5-10.1) 12/10/17 08:35 Phosphorus 3.4 mg/dL (2.5-4.9) 12/10/17 08:35 Magnesium 1.9 mg/dL (1.5-2.5) 12/10/17 08:35 Total Bilirubin 0.3 mg/dL (0.2-1.0) 12/10/17 08:35 AST 20 U/L (15-37) 12/10/17 08:35 ALT 23 U/L (10-53) 12/10/17 08:35 Alkaline Phosphatase 63 U/L (45-117) 12/10/17 08:35 Total Creatine Kinase 65 U/L (26-192) 12/09/17 02:15 Troponin I Less than 0.02 ng/mL (0.02-0.05) L 12/09/17 02:15 Total Protein 7.2 g/dL (6.4-8.2) D 12/10/17 08:35 Albumin 3.2 g/dL (3.4-5.0) L 12/10/17 08:35 Triglycerides 181 mg/dL (42-150) H 12/10/17 08:35 Cholesterol 250 mg/dL (120-200) H 12/10/17 08:35 LDL Cholesterol, Calc 147 mg/dL (0-99) H 12/10/17 08:35 HDL Cholesterol 66.9 mg/dL (40.0-60.0) H 12/10/17 08:35 Cholesterol/HDL Ratio 3.73 Ratio 12/10/17 08:35 TSH 4.210 uIU/mL (0.358-3.740) H 12/09/17 02:15 Free T4 0.80 ng/dL (0.76-1.46) 12/09/17 02:15 Impressions Carotid Doppler Study 12/09/17 00:00 CONCLUSION: 1. Right Internal Carotid Artery: No significant stenosis or atherosclerotic plaque is visualized. 2. Left Internal Carotid Artery: No significant stenosis or atherosclerotic plaque is visualized. Head MRI 12/09/17 00:00 CONCLUSION: No evidence of acute intracranial pathology. No masses are identified. White matter abnormalities as above Chest X-Ray 12/09/17 02:05 CONCLUSION: No evidence of acute cardiopulmonary disease. Head CT 12/09/17 02:05 CONCLUSION: 1. No acute intracranial abnormality demonstrated. 2. Chronic bilateral white matter and basal ganglia ischemic changes. 3. Mild paranasal sinus disease. . Wrist X-Ray 12/09/17 02:30 CONCLUSION: Intact left wrist. Head MRA 12/09/17 08:53 CONCLUSION: 1. Negative MRA [place] ([place] [facility] [place]) non contrast. Labs on day of discharge: Labs from last 24 hours 12/10/17 12/10/17 12/10/17 09:09 08:35 08:35 WBC RBC Hgb Hct MCV MCH MCHC RDW Plt Count MPV Neut % (Auto) Lymph % (Auto) [place] % (Auto) Eos % (Auto) Baso % (Auto) Neut # (Auto) Lymph # (Auto) [place] # (Auto) Eos # (Auto) Baso # (Auto) WBC Differential Differential Comment Sodium 140 Potassium 4.1 D Chloride 103 Carbon Dioxide 26.9 Anion Gap 10 BUN 11 Creatinine 0.67 Estimated GFR Greater than 89 POC Glucose 119 H Random Glucose 102 Hemoglobin A1c Pending Calcium 8.7 Phosphorus 3.4 Magnesium 1.9 Total Bilirubin 0.3 AST 20 ALT 23 Alkaline Phosphatase 63 Total Protein 7.2 D Albumin 3.2 L Triglycerides 181 H Cholesterol 250 H LDL Cholesterol, Calc 147 H HDL Cholesterol 66.9 H Cholesterol/HDL Ratio 3.73 12/10/17 12/09/1718 08:35 20:36 18:07 WBC 6.1 RBC 4.24 Hgb 11.6 Hct 36.4 MCV 85.9 MCH 27.4 MCHC 31.9 L RDW 16.9 Plt Count 266 MPV 9.2 Neut % (Auto) 67.9 Lymph % (Auto) 24.5 [place] % (Auto) 5.6 Eos % (Auto) 1.4 Baso % (Auto) 0.6 Neut # (Auto) 4.1 Lymph # (Auto) 1.5 [place] # (Auto) 0.3 Eos # (Auto) 0.1 Baso # (Auto) 0.0 WBC Differential . Differential Comment Auto diff final Sodium Potassium Chloride Carbon Dioxide Anion Gap BUN Creatinine Estimated GFR POC Glucose 153 H 120 H Random Glucose Hemoglobin A1c Calcium Phosphorus Magnesium Total Bilirubin AST ALT Alkaline Phosphatase Total Protein Albumin Triglycerides Cholesterol LDL Cholesterol, Calc HDL Cholesterol Cholesterol/HDL Ratio - Impressions ITS Impressions Carotid Doppler Study 12/09/17 00:00 CONCLUSION: 1. Right Internal Carotid Artery: No significant stenosis or atherosclerotic plaque is visualized. 2. Left Internal Carotid Artery: No significant stenosis or atherosclerotic plaque is visualized. Head MRI 12/09/17 00:00 CONCLUSION: No evidence of acute intracranial pathology. No masses are identified. White matter abnormalities as above Chest X-Ray 12/09/17 02:05 CONCLUSION: No evidence of acute cardiopulmonary disease. Head CT 12/09/17 02:05 CONCLUSION: 1. No acute intracranial abnormality demonstrated. 2. Chronic bilateral white matter and basal ganglia ischemic changes. 3. Mild paranasal sinus disease. . Wrist X-Ray 12/09/17 02:30 CONCLUSION: Intact left wrist. Head MRA 12/09/17 08:53 CONCLUSION: 1. Negative MRA [place] ([place] [facility] [place]) non contrast. Discharge Plan - Discharge Disposition Patient Disposition: 01 Discharge Home - Discharge Condition Condition: Good - Physicians Team Primary Care Provider: Primary Care Physici,No Attending Provider: Yehuda Dumont Other Providers: Taiwo Prabhakar MD ; Patel Guerrero MD ; Gabbie Diaz
[2017-12-10] MEDS ORDERED: Atropine Inj 1 MG/ML Vial IV.PUSH PRN (12:41)
[2017-12-10] MEDS ORDERED: Misc Info for Pharmacy OTHER STA (12:41)
[2017-12-10 13:01] VITALS: BP 126/83; PULSE 64; TEMP 97.7; O2SAT 98
--- NOTE | 2017-12-10 15:34 | P.DS ---
Date of admission: 12/09/17 04:08 Primary care physician: No Primary Care Physician Attending physician on discharge: Yehuda Dumont Anticipated date of discharge: 12/10/17 Brief History from admission: 52-year-old female with a history of hypertension, CVA who recently ran out of her blood pressure meds 2 weeks ago. She presents with a two-week history of light headedness without syncope, progressively worsening left arm numbness/ decreased sensation. She also reports feeling like she is "swelling all over. Denies any chest pain, shortness of breath, nausea, vomiting. DS: Diagnosis - Discharge Diagnosis (1) Noncompliance Status: Chronic (2) Severe hypertension Status: Chronic (3) TIA (transient ischemic attack) Status: Acute DS: Medications - Discharge Medications Prescriptions: aspirin 81 mg PO DAILY #30 tab clopidogrel [Plavix] 75 mg PO DAILY #30 tab losartan [Cozaar] 25 mg PO DAILY #30 tab simvastatin [Zocor] 20 mg PO QPM #30 tab DS: Summary Hospital Course: 52-year-old female with a history of hypertension, CVA who recently ran out of her blood pressure meds 2 weeks ago. She presents with a two-week history of light headedness without syncope, progressively worsening left arm numbness/ decreased sensation. She also reports feeling like she is "swelling all over. Denies any chest pain, shortness of breath, nausea, vomiting. 12-09 PATIENT STATES SHE HAS NOT TAKEN HER MEDS IN A FEW WEEKS HAD MRI ECHO AND CAROTIDS ARE PENDING-- BOTH ARE STABLE CATAPRES PRN FOR BLOOD PRESSURE DW RN AND PT AND CM 12-10 SEEN BY CARDIO AND ONCOLOGY CAN DC TO HOME TODAY WANTS TO GO HOME NEEDS NOTE FOR WORK - Time Spent with Patient Total time spent providing and/or coordinating discharge services: Greater than 30 minutes - Quality: VTE Deep Vein Thrombosis/Pulmonary Embolism Present on Admission: No Exam Vital signs: Vital Signs 12/09/17 16:26 12/09/17 20:26 12/09/17 22:17 Temperature 98.7 F 98.7 F 98.5 F Pulse Rate 55 L 59 L 58 L Respiratory Rate 16 17 17 Blood Pressure 134/87 112/65 122/76 Pulse Oximetry 97 96 98 12/09/17 23:30 12/10/17 00:00 12/10/17 03:27 Temperature 98.2 F Pulse Rate 65 51 L 57 L Respiratory Rate 17 16 Blood Pressure 118/79 113/70 Pulse Oximetry 97 100 12/10/17 07:00 12/10/17 08:06 12/10/17 08:07 Temperature 97.6 F Pulse Rate 68 66 71 Respiratory Rate 16 16 16 Blood Pressure 127/71 140/74 130/79 Pulse Oximetry 96 96 12/10/17 09:52 12/10/17 12:00 Temperature 97.7 F Pulse Rate 63 64 Respiratory Rate 16 Blood Pressure 126/83 Pulse Oximetry 98 Narrative: GENERAL: Patient sitting up in bed. Appears comfortable. SKIN: Warm and dry. HEAD: Atraumatic. Normocephalic. EYES: Pupils equal and round. No scleral icterus. No injection or drainage. EOMI ENT: No nasal bleeding or discharge. Mucous membranes pink and moist. TONGUE MIDLINE NECK: Trachea midline. No JVD. SUPPLE CARDIOVASCULAR: Regular rate and rhythm. S1-S2 no S3 or S4 RESPIRATORY: No accessory muscle use. Clear to auscultation. Breath sounds equal bilaterally. GASTROINTESTINAL: Abdomen soft, non-tender, nondistended. Hepatic and splenic margins not palpable. MUSCULOSKELETAL: Extremities without clubbing, cyanosis, or edema. No obvious deformities. NEUROLOGICAL: Awake and alert. No obvious cranial nerve deficits. Motor grossly within normal limits. Five out of 5 muscle strength in the arms and legs. No appreciable loss of strength. Normal speech. PSYCHIATRIC: Appropriate mood and affect; insight and judgment normal. Results Procedures completed during hospitalization: NONE Completed studies during hospitalization: Laboratory Results WBC 6.1 th/mm3 (4.0-11.0) 12/10/17 08:35 RBC 4.24 mil/mm3 (4.00-5.30) 12/10/17 08:35 Hgb 11.6 gm/dL (11.6-15.3) 12/10/17 08:35 Hct 36.4 % (35.0-46.0) 12/10/17 08:35 MCV 85.9 fL (80.0-100.0) 12/10/17 08:35 MCH 27.4 pg (27.0-34.0) 12/10/17 08:35 MCHC 31.9 % (32.0-36.0) L 12/10/17 08:35 RDW 16.9 % (11.6-17.2) 12/10/17 08:35 Plt Count 266 th/mm3 (150-450) 12/10/17 08:35 MPV 9.2 fL (7.0-11.0) 12/10/17 08:35 Neut % (Auto) 67.9 % (16.0-70.0) 12/10/17 08:35 Lymph % (Auto) 24.5 % (9.0-44.0) 12/10/17 08:35 Gregg % (Auto) 5.6 % (0.0-8.0) 12/10/17 08:35 Eos % (Auto) 1.4 % (0.0-4.0) 12/10/17 08:35 Baso % (Auto) 0.6 % (0.0-2.0) 12/10/17 08:35 Neut # (Auto) 4.1 th/mm3 (1.8-7.7) 12/10/17 08:35 Lymph # (Auto) 1.5 th/mm3 (1.0-4.8) 12/10/17 08:35 Gregg # (Auto) 0.3 th/mm3 (0.0-0.9) 12/10/17 08:35 Eos # (Auto) 0.1 th/mm3 (0.0-0.4) 12/10/17 08:35 Baso # (Auto) 0.0 th/mm3 (0.0-0.2) 12/10/17 08:35 WBC Differential . 12/10/17 08:35 Differential Comment Auto diff final 12/10/17 08:35 PT 10.3 sec (9.8-11.6) 12/09/17 10:02 INR 1.0 Ratio 12/09/17 10:02 APTT 24.1 sec (24.3-30.1) L 12/09/17 10:02 Fibrinogen 328 mg/dL (227-377) 12/09/17 10:02 D-Dimer Quant (PE/DVT) 0.24 mg/L FEU (0.00-0.50) 12/09/17 10:02 Factor VIII Activity Cancelled 12/09/17 10:02 Sodium 140 meq/L (136-145) 12/10/17 08:35 Potassium 4.1 meq/L (3.5-5.1) D 12/10/17 08:35 Chloride 103 meq/L (98-107) 12/10/17 08:35 Carbon Dioxide 26.9 meq/L (21.0-32.0) 12/10/17 08:35 Anion Gap 10 meq/L (5-15) 12/10/17 08:35 BUN 11 mg/dL (7-18) 12/10/17 08:35 Creatinine 0.67 mg/dL (0.50-1.00) 12/10/17 08:35 Estimated GFR Greater than 89 mL/min (>89) 12/10/17 08:35 POC Glucose 112 mg/dl (68-110) H 12/10/17 13:03 Random Glucose 102 mg/dL (74-106) 12/10/17 08:35 Calcium 8.7 mg/dL (8.5-10.1) 12/10/17 08:35 Phosphorus 3.4 mg/dL (2.5-4.9) 12/10/17 08:35 Magnesium 1.9 mg/dL (1.5-2.5) 12/10/17 08:35 Total Bilirubin 0.3 mg/dL (0.2-1.0) 12/10/17 08:35 AST 20 U/L (15-37) 12/10/17 08:35 ALT 23 U/L (10-53) 12/10/17 08:35 Alkaline Phosphatase 63 U/L (45-117) 12/10/17 08:35 Total Creatine Kinase 65 U/L (26-192) 12/09/17 02:15 Troponin I Less than 0.02 ng/mL (0.02-0.05) L 12/09/17 02:15 Total Protein 7.2 g/dL (6.4-8.2) D 12/10/17 08:35 Albumin 3.2 g/dL (3.4-5.0) L 12/10/17 08:35 Triglycerides 181 mg/dL (42-150) H 12/10/17 08:35 Cholesterol 250 mg/dL (120-200) H 12/10/17 08:35 LDL Cholesterol, Calc 147 mg/dL (0-99) H 12/10/17 08:35 HDL Cholesterol 66.9 mg/dL (40.0-60.0) H 12/10/17 08:35 Cholesterol/HDL Ratio 3.73 Ratio 12/10/17 08:35 TSH 4.210 uIU/mL (0.358-3.740) H 12/09/17 02:15 Free T4 0.80 ng/dL (0.76-1.46) 12/09/17 02:15 Impressions Carotid Doppler Study 12/09/17 00:00 CONCLUSION: 1. Right Internal Carotid Artery: No significant stenosis or atherosclerotic plaque is visualized. 2. Left Internal Carotid Artery: No significant stenosis or atherosclerotic plaque is visualized. Head MRI 12/09/17 00:00 CONCLUSION: No evidence of acute intracranial pathology. No masses are identified. White matter abnormalities as above Chest X-Ray 12/09/17 02:05 CONCLUSION: No evidence of acute cardiopulmonary disease. Head CT 12/09/17 02:05 CONCLUSION: 1. No acute intracranial abnormality demonstrated. 2. Chronic bilateral white matter and basal ganglia ischemic changes. 3. Mild paranasal sinus disease. . Wrist X-Ray 12/09/17 02:30 CONCLUSION: Intact left wrist. Head MRA 12/09/17 08:53 CONCLUSION: 1. Negative MRA [place] ([place]) non contrast. Labs on day of discharge: Labs from last 24 hours 12/10/17 12/10/17 12/10/17 13:03 09:09 08:35 WBC RBC Hgb Hct MCV MCH MCHC RDW Plt Count MPV Neut % (Auto) Lymph % (Auto) Gregg % (Auto) Eos % (Auto) Baso % (Auto) Neut # (Auto) Lymph # (Auto) Gregg # (Auto) Eos # (Auto) Baso # (Auto) WBC Differential Differential Comment Sodium Potassium Chloride Carbon Dioxide Anion Gap BUN Creatinine Estimated GFR POC Glucose 112 H 119 H Random Glucose Hemoglobin A1c Pending Calcium Phosphorus Magnesium Total Bilirubin AST ALT Alkaline Phosphatase Total Protein Albumin Triglycerides Cholesterol LDL Cholesterol, Calc HDL Cholesterol Cholesterol/HDL Ratio 12/10/17 12/10/17 12/09/17 08:35 08:35 20:36 WBC 6.1 RBC 4.24 Hgb 11.6 Hct 36.4 MCV 85.9 MCH 27.4 MCHC 31.9 L RDW 16.9 Plt Count 266 MPV 9.2 Neut % (Auto) 67.9 Lymph % (Auto) 24.5 Gregg % (Auto) 5.6 Eos % (Auto) 1.4 Baso % (Auto) 0.6 Neut # (Auto) 4.1 Lymph # (Auto) 1.5 Gregg # (Auto) 0.3 Eos # (Auto) 0.1 Baso # (Auto) 0.0 WBC Differential . Differential Comment Auto diff final Sodium 140 Potassium 4.1 D Chloride 103 Carbon Dioxide 26.9 Anion Gap 10 BUN 11 Creatinine 0.67 Estimated GFR Greater than 89 POC Glucose 153 H Random Glucose 102 Hemoglobin A1c Calcium 8.7 Phosphorus 3.4 Magnesium 1.9 Total Bilirubin 0.3 AST 20 ALT 23 Alkaline Phosphatase 63 Total Protein 7.2 D Albumin 3.2 L Triglycerides 181 H Cholesterol 250 H LDL Cholesterol, Calc 147 H HDL Cholesterol 66.9 H Cholesterol/HDL Ratio 3.73 12/09/17 18:07 WBC RBC Hgb Hct MCV MCH MCHC RDW Plt Count MPV Neut % (Auto) Lymph % (Auto) Gregg % (Auto) Eos % (Auto) Baso % (Auto) Neut # (Auto) Lymph # (Auto) Gregg # (Auto) Eos # (Auto) Baso # (Auto) WBC Differential Differential Comment Sodium Potassium Chloride Carbon Dioxide Anion Gap BUN Creatinine Estimated GFR POC Glucose 120 H Random Glucose Hemoglobin A1c Calcium Phosphorus Magnesium Total Bilirubin AST ALT Alkaline Phosphatase Total Protein Albumin Triglycerides Cholesterol LDL Cholesterol, Calc HDL Cholesterol Cholesterol/HDL Ratio - Impressions ITS Impressions Carotid Doppler Study 12/09/17 00:00 CONCLUSION: 1. Right Internal Carotid Artery: No significant stenosis or atherosclerotic plaque is visualized. 2. Left Internal Carotid Artery: No significant stenosis or atherosclerotic plaque is visualized. Head MRI 12/09/17 00:00 CONCLUSION: No evidence of acute intracranial pathology. No masses are identified. White matter abnormalities as above Chest X-Ray 12/09/17 02:05 CONCLUSION: No evidence of acute cardiopulmonary disease. Head CT 12/09/17 02:05 CONCLUSION: 1. No acute intracranial abnormality demonstrated. 2. Chronic bilateral white matter and basal ganglia ischemic changes. 3. Mild paranasal sinus disease. . Wrist X-Ray 12/09/17 02:30 CONCLUSION: Intact left wrist. Head MRA 12/09/17 08:53 CONCLUSION: 1. Negative MRA [place] ([place]) non contrast. Discharge Plan - Discharge Disposition Patient Disposition: 01 Discharge Home - Discharge Condition Condition: Good - Discharge Order Discharge Orders: Discharge Order (Routine); Ordered 12/10/17 Ordered By: Yehuda Dumont - Discharge Details Anticipated Discharge Date: 12/10/17 Discharge Comment: DC TO HOME - Physicians Team Primary Care Provider: Primary Care Kishor,Sugey Attending Provider: Yehuda Dumont Other Providers: Taiwo Prabhakar MD ; Patel Guerrero MD ; Gabbie Diaz
[2017-12-10 17:01] LABS: Hemoglobin A1c 6.3 % (4.3-6.0)
[2017-12-10] MEDS ORDERED: Metoprolol Tartrate 25 MG Tablet PO SCH (21:00)
[2017-12-10 23:52] LABS: Homocysteine (Cardiovascular) 11.5 umol/L (<10.4)
[2017-12-11] MEDS ORDERED: Isosorbide Mononitrate 30 MG ER 24HR Tablet (Imdur) PO SCH (07:00)
[2017-12-11 19:54] LABS: Dil Russell Viper Venom Conf ( ND (NEGATIVE); Dil Russell Viper Venom Time M ND (CORRECTED); Lupus Anticoagulant PTT Screen 31 seconds (< OR = 40); Thrombin Time 16 sec (13-19)
[2017-12-12 23:52] LABS: Activated Protein C Resistance 4.9 ratio (> OR = 2.1)
[2017-12-16 13:24] LABS: Factor V Leiden Mutation Negative (Negative); Protein C Antigen 129 % (70-150)
== END 2017-12-10 17:05 | disposition home or self-care (01) ==
LOC: NEPC 23:18 → NEDA 23:18 → NEDH 12-09 09:48 → NEPFCDU 12-09 15:04
PROVIDERS: ADMIT Hospitalist; ATTEND Hospitalist